=== PATIENT | female | born 1955 | race Caucasian/White ===

== ENCOUNTER 2016-06-04 10:27 | Emergency (ER) | payer SELFPAY | END 2016-06-04 11:32 | disposition left against medical advice (07) | LOC: UCEAST 10:27 | DX: Z53.21 Procedure and treatment not carried out due to patient leaving prior to being seen by health care provider (principal); R07.81 Pleurodynia ==

== ENCOUNTER 2017-10-07 08:12 | Day surgery (SDC) | payer BC ==
--- NOTE | 2017-09-28 07:27 | HP ---
CC: Dr. Gabriela Garcia. * PREOPERATIVE HISTORY AND PHYSICAL: DATE OF ADMISSION: 10/07/17 DATE OF PREOPERATIVE HISTORY AND PHYSICAL EXAM: 09/27/17 This patient is scheduled for same day surgery admission by Dr. Amador on Tuesday10/07/17. ATTENDING SURGEON: Dr. Michelle Amador * (dictated by Kita Garsia NP). CHIEF COMPLAINT: Right breast cancer. HISTORY OF PRESENT ILLNESS: The patient is a 62-year-old female, recently evaluated by Dr. 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 The patient denies any pain or nipple discharge; she does not have a family history of breast or ovarian cancer. Menarche was at age 11, menopause at age 52. First delivery at age 24. The patient took control pills for less than 10 years and is not on any hormone replacement therapy. She has never had radiation to the chest. She did breast feed. Dr. Amador examined the patient and discussed the findings and has recommended mammo-guided needle localization excision of the right breast cancer and sentinel lymph node biopsy as a same day surgery procedure; she discussed the nature of the surgical procedure, the rationale for the procedure, the relevant risks and benefits and today I reviewed the expected postoperative care and recovery. The patient has had a chance to ask questions and stated that she understands the information and is satisfied with the answers given to her questions. She will sign surgical consent on the day of surgery. PAST MEDICAL HISTORY: Significant for hypertension, esophageal erosions, alcoholism, anxiety and depression, and obesity. PAST SURGICAL HISTORY: None. OB HISTORY: 2, para 2. She is postmenopausal and is up-to-date with pelvic exam and Pap smear within the past 3 years. MEDICATIONS: 1. Citalopram 40 mg p.o. daily at bedtime. 2. Levothyroxine 88 mcg p.o. daily in the morning. 3. Gabapentin 300 mg p.o. daily at bedtime and up to 300 mg during the day as needed. 4. Zolpidem 10 mg daily at bedtime. 5. Omeprazole 20 mg p.o. daily in the morning. 6. Metoprolol 50 mg p.o. daily in the morning. She is on the following supplements: 1. Vitamin D3. 2. B1. 3. B12. 4. Folic acid. ALLERGIES: No known drug allergies, but she avoids ibuprofen due to history of esophageal erosions. FAMILY HISTORY: No known anesthesia complications or bleeding tendencies. The patient's mother had a pulmonary embolism. SOCIAL HISTORY: She is and lives with her son. She has never been a smoker. She reports struggles with alcoholism. She denies the use of other substances. REVIEW OF SYSTEMS: Constitutional: No fevers, chills, excessive fatigue. Endocrine: No diabetes. She is on thyroid replacement for hypothyroidism. Hematologic: No easy bruising or bleeding. No history of blood transfusions. Respiratory: No dyspnea on exertion. No chronic cough. Cardiovascular: No anginal chest pain or palpitations. Gastrointestinal: No nausea, vomiting, diarrhea or constipation; she had blood in her stool and underwent both upper endoscopy and colonoscopy and was told that she had esophageal erosions. Genitourinary: No dysuria. Musculoskeletal: No complaints of joint or back pain today. Neurologic: No headaches or blurred vision. No areas of focal weakness or numbness. Psychiatric: Anxiety and depression and she states that she struggles with alcoholism and is in counseling. She reports that she has decreased her alcohol intake significantly. General: The patient denies any previous anesthesia complications or history of deep venous thrombosis or pulmonary embolism. PHYSICAL EXAMINATION GENERAL SURVEY: The patient is a 62-year-old overweight female, well developed , in no acute distress. VITAL SIGNS: Height 63 inches, weight 214 pounds, body mass index 37.9. Blood pressure 138/88, pulse 76 and regular, respiratory rate 16 and temperature 98.6 tympanic. HEENT: Benign. NECK: Supple. No cervical lymphadenopathy. BACK: No CVA tenderness. LUNGS: Breath sounds bilaterally clear and equal. BREASTS: Symmetrical. Area of biopsy, right breast, healed without any signs of infection. Palpation reveals a small area of thickened tissue in the lateral right breast; left breast no discrete masses. Nipples are normal to inspection. No discharge. No palpable axillary lymphadenopathy. No palpable supraclavicular lymphadenopathy. HEART: Regular rate and rhythm. No murmurs or rubs appreciated. ABDOMEN: Active bowel sounds, soft, nondistended, nontender throughout. No obvious masses or organomegaly or evidence of umbilical hernia. EXTREMITIES: Warm without edema or skin ulceration. PELVIC: Deferred. RECTAL: Deferred. NEUROLOGIC: Alert and oriented x3, steady gait. SKIN: Warm, dry, intact. IMPRESSION: Right breast cancer. PLAN: Same day surgery admission to Dr. Amador's service on Tuesday10/07/17 for mammo-guided needle localization excision of right breast cancer and sentinel lymph node biopsy. GAYLE GARSIA, BASKET ASSEMBLER [id number]/CPS #: [id number] [facility]
[~2017-10-07 08:12] MED LIST: Buffered Lidocaine 0.9% SYRIN* 5 ML/SYR SYRINGE INTRADERM ONE; Famotidine IV* 10 MG/ML 2 ML (20 mg) IV ONE
[2017-10-07] MEDS ORDERED: Lidocaine 2.5%/Prilocain 2.5%* 5 GM TUBE ONE (08:24)
[2017-10-07] MEDS ORDERED: ceFAZolin 2 GM PREMIX (*) 2 GM/50 ML BAG IVPB ONE (08:24)
[2017-10-07] MEDS ORDERED: Famotidine IV* 10 MG/ML 2 ML (20 mg) ONE (12:48)
[2017-10-07] MEDS ORDERED: Heparin VIAL(*) 5000 UNITS/ML VIAL (FIVE THOUSAND) ONE (12:48)
[2017-10-07] MEDS ORDERED: fentaNYL* 50 MCG/ML 2 ML VIAL (100 MCG VIAL) ONE (13:14)
[2017-10-07] MEDS ORDERED: Midazolam* 1 MG/ML 5 ML VIAL (5 MG) ONE (13:14)
[2017-10-07] MEDS ORDERED: Bupivacaine 0.5%* 50 ML VIAL ONE (14:13)
[2017-10-07] MEDS ORDERED: ceFAZolin 1 GM in Dextrose (*) 2 GM/100 ML BAG IVPB ONE (14:43)
[2017-10-07] MEDS ORDERED: Lidocaine 1% MPF wEPI 200,000* 30 ML SDV ONE (14:55)
[2017-10-07] MEDS ORDERED: Propofol* 10 MG/ML 20 ML BTL IV PUSH ONE (14:59)
[2017-10-07] MEDS ORDERED: Dexamethasone IV* 4 MG/ML 1 ML (4 MG) ONE (14:59)
[2017-10-07] MEDS ORDERED: Ketorolac INJ* 30 MG/ML 1 ML VIAL ONE (14:59)
[2017-10-07] MEDS ORDERED: DiMENhydriNATE IV* 50 MG/ML VIAL ONE (14:59)
[2017-10-07] MEDS ORDERED: HYDROmorphone INJ* 1 MG/ML CARPUJECT SYRINGE IV PRN (15:46)
[2017-10-07] MEDS ORDERED: DiMENhydriNATE IV* 50 MG/ML VIAL IV PUSH PRN (15:46)
[2017-10-07] MEDS ORDERED: Acetaminophen TAB* 325 MG PO PRN (15:46)
[2017-10-07] MEDS ORDERED: Naloxone* 0.4 MG/ML 1 ML VIAL IV PRN (15:46)
--- NOTE | 2017-10-07 15:49 | RAD ---
Indication: Breast cancer. Ultrasound of the right breast was performed. Using usual aseptic technique and lidocaine as a local anesthetic a 5 cm needle was placed within the right breast. A guidewire was placed. Mammogram performed after localization demonstrates the guidewire to be located adjacent to the mass in the right breast. 3 views of the specimen demonstrates the localized mass to be within the specimen. IMPRESSION: Successful localization of the mass in the right breast.
--- NOTE | 2017-10-07 15:54 | RAD ---
Indication: Right breast cancer. [place] node localization was performed after intradermal injection of the circumareolar region of the right breast. [place] node was localized and marked with indelible marker. IMPRESSION: Localization of the sentinel node after intradermal injection.
--- NOTE | 2017-10-07 16:42 | BRIEFOPN ---
Brief Operative Note - Surgery Procedures: 10/07/17 Op Note Pre-op dx: right breast cancer Post-op dx: same Procedure: needle localization excision of right breast cancer and sentinel lymph node biopsy Surgeon: Perry Asst: none Anesth: General EBL: 50 cc SCDs on during surgery Abx: given pre-op Complications: none Pt. tolerated procedure well and was transferred to in a stable condition. CL[facility]oster
[2017-10-07] MEDS ORDERED: HYDROcodone/ACETAMIN 5-325 MG* 1 TAB PO PRN (16:43)
[2017-10-07 17:31] VITALS: BP 137/93
--- NOTE | 2017-10-08 08:13 | OP ---
[facility]: [facility]; Dr. Gabriela Garcia OPERATIVE REPORT: DATE OF OPERATION: 10/07/17 DATE OF : 53 SURGEON: Michelle Amador MD VARNISH INSPECTOR: None. PRE-OP DIAGNOSIS: Right breast cancer. POST-OP DIAGNOSIS: Right breast cancer. OPERATIVE PROCEDURE: Needle localization, excision of right breast cancer, and sentinel lymph node b iopsy. INDICATIONS: Ms. Goldsmith is a 62-year-old female recently diagnosed with breast cancer, who has opted for breast conserving therapy. DESCRIPTION OF PROCEDURE: On the morning of surgery, she underwent needle localization and sentinel lymph node localization without difficulty. She was then brought to the operating room, placed on th e OR table in the supine position, and given general anesthesia. The right breast and axilla were pr epped and draped in the usual sterile fashion. After infiltrating with local anesthetic, the first s tep was to excise the breast cancer. This was done by making an incision around the wire in a curvil inear elliptical fashion. Subcutaneous tissue was then divided with electrocautery to completely exc ise the mass of tissue from around the wire, which was sent to Radiology with the usual markings. Th e report eventually came back from Radiology that this specimen contained the abnormality. Meanwhile , hemostasis was achieved with electrocautery and suture ligature. Once hemostasis appeared adequate , the cavity was marked with clips and then closure was accomplished. This was done with 3-0 Vicryl in the subcutaneous layer and the skin was closed with 4-0 Prolene in a subcuticular fashion. Attent ion was then turned to the axilla. Here, using the navigator, the approximate location of the sentin el node was identified and a curvilinear incision was made over this area after infiltrating with loc al anesthetic. Subcutaneous tissue was then divided with electrocautery down to the level of the axi llary fat pad. Again, using the navigator, the sentinel node was identified, it is in situ. Counts were around 874. It was excised using sharp and blunt dissection and clips to control small lymphati c and blood vessels that approached the gland. Once it was out, its ex vivo counts were 655 and the axillary bed counts were 0. The wound was irrigated with saline. Additional local was instilled int o the wound and then closure was accomplished with 3-0 Vicryl in the subcutaneous layer and the skin was closed with 4-0 Prolene in a subcuticular fashion. Steri-Strips and a dry sterile dressing were applied to both incisions. All sponge and instrument counts were correct. The patient tolerated the procedure well and was transferred to Recovery in a stable condition. [id number]/[facility] #: [id number]
== END 2017-10-07 18:00 | disposition home or self-care (01) ==
LOC: SDS 08:12
PROVIDERS: ATTEND Surgery
DX: C50.911 Malignant neoplasm of unspecified site of right female breast (principal); I10 Essential (primary) hypertension; K22.10 Ulcer of esophagus without bleeding; F41.9 Anxiety disorder, unspecified; F32.9 Major depressive disorder, single episode, unspecified; F10.129 Alcohol abuse with intoxication, unspecified
CPT/HCPCS: 77063; 78195; 88307; 88342; A9270-GY; A9541; J0690; J1100; J1240; J1644; J1885; J2001; J2250; J2704; J3010

== ENCOUNTER 2018-09-15 19:28 | Emergency (ER) | payer BC ==
--- NOTE | 2018-09-15 20:04 | ED ---
Head Injury - HPI Summary HPI Summary: 63 yo female presents to [facility] accompanied by son, Mihai. Pt tells me that she was drinking a bottle of white wine this evening, last drink about 3 hours ago. She went down her steps at home and slipped on 3 wooden steps and hit the back of her head. No LOC. Pt was able to get to her feet and noticed some bleeding from the back of her head. Her son brought her to the ED. She thinks she is UTD on her tetanus. Denies headache, dizziness, vision changes, weakness, neck pain , SOB, or chest pain. She denies alcohol abuse, states that she was just relaxing on a tuesday after work. - History Of Current Complaint Chief Complaint: EDHeadInjury Stated Complaint: FALL/HEAD INJURY PER PT Time Seen by Provider: 09/15/18 20:03 Hx Obtained From: Patient Severity Currently: Mild Severity Initially: Moderate Pain Intensity: 2 Pain Scale Used: 0-10 Numeric - Allergies/Home Medications Allergies/Adverse Reactions: Allergies Allergy/AdvReac Type Severity Reaction Status Date / Time ibuprofen Allergy Intermediate GI Upset Verified 09/15/18 19:46 PMH/Surg Hx/FS Hx/Imm Hx Endocrine/Hematology History: Reports: Hx Thyroid Disease - HYPO Denies: Hx Bone Marrow Disease, Hx Sickle Cell Disease, Hx Anemia Cardiovascular History: Reports: Hx Hypertension - CONTROLLED WITH MEDICATION HIGHER IN AM Sensory History: Reports: Hx Contacts or Glasses - GLASSES Denies: Hx Cataracts, Hx Glaucoma, Hx Hearing Aid Opthamlomology History: Reports: Hx Contacts or Glasses - GLASSES Denies: Hx Cataracts, Hx Glaucoma Psychiatric History: Reports: Hx Anxiety, Hx Depression - Cancer History Cancer Type, Location and Year: breast Hx Chemotherapy: No Hx Radiation Therapy: Yes - Surgical History Surgery Procedure, Year, and Place: drain right breast Hx Anesthesia Reactions: No Infectious Disease History: No Infectious Disease History: Denies: Traveled Outside the [place] in Last 30 Days - Social History Alcohol Use: Daily Alcohol Amount: BOTTLE OF WINE Substance Use Type: Reports: None Smoking Status (MU): Never Smoked Tobacco Have You Smoked in the Last Year: No Review of Systems Constitutional: Negative Eyes: Negative Cardiovascular: Negative Respiratory: Negative Gastrointestinal: Negative Genitourinary: Negative Skin: Other - Laceration back of head Neurological: Negative Psychological: Normal All Other Systems Reviewed And Are Negative: Yes Physical Exam - Summary Physical Exam Summary: GENERAL: NAD. WDWN. SKIN: Occipital scalp with 2.0cm linear vertical laceration with 5mm of width. Scant active bleeding. HEENT: Head: AT/NC. No raccoon eyes or battles sign. Eyes: PERRLA. EOM intact. Ears: Hearing grossly normal. No hemotympanum NECK: Supple. Nontender. FROM CHEST: CTAB. No r/r/w. No accessory muscle use. Breathing comfortably and in no distress. CV: RRR. Without m/r/g. Pulses intact. Brisk cap refill. MSK: FROM in B/L UEs and LEs with symmetric strength. NEURO: A&Ox3. 3 word recall, remote, recent memory, ability to follow 2-step directions, and attention intact. CN: II: Peripheral hancock intact. Vision normal. III, IV, : EOMI. No nystagmus. PERRLA. V: Sensations intact and symmetric. Opens mouth and clenches teeth. VII: No facial asymmetry. Forehead wrinkles. Grins, shuts eyes, frowns, puffs cheeks. VIII: Hearing intact to finger rub. IX, X: Swallows and coughs. Uvula midline. XI: Shrugs shoulders. Turns head against resistance. XII: No tongue deviation [id number] are intact. Gait with normal base. Romberg: maintains balance, no pronator drift. Normal speech. No facial drooping. PSYCH: Age appropriate behavior. Triage Information Reviewed: Yes Vital Signs On Initial Exam: Initial Vitals Temp Pulse Resp BP Pulse Ox 98.4 F 90 16 125/84 96 09/15/18 19:42 09/15/18 19:42 09/15/18 19:42 09/15/18 19:42 09/15/18 19:42 Vital Signs Reviewed: Yes Procedures - Laceration/Wound Repair 1 Location: head Description: Linear Anesthesia: 2.0% Laceration/Wound Explored: clean Closure: Mick #__ - 6 Diagnostics - Vital Signs Vital Signs Temp Pulse Resp BP Pulse Ox 09/15/18 19:42 98.4 F 90 16 125/84 96 - Laboratory Lab Statement: Any lab studies that have been ordered have been reviewed, and results considered in the medical decision making process. Head Injury Course/Dx Course Of Treatment: The procedure was explained to the pt and all questions were answered. A time out was performed, witnessed, and signed. The area was irrigated with 250mL sterile saline. 2mL of 2% lidocaine without epi was administered and good anesthetization was achieved. SIX mick were placed and wound was approximated. Pt tolerated procedure well. She is AAOx3 and neuro exam is WNL. She has her son Mihai with her here that can drive her home. Advised to return to ED if she develops a headache, dizizness, vision changes, nausea, or vomiting. - Diagnoses Provider Diagnoses: Head injury, Scalp laceration Discharge - Sign-Out/Discharge Documenting (check all that apply): Patient Departure Patient Received Moderate/Deep Sedation with Procedure: No - Discharge Plan Condition: Stable Disposition: HOME Patient Education Materials: Head Injury (ED), [facility] (ED) Referrals: Gabriela Garcia MD [Primary Care Provider] - 1 Week Additional Instructions: If you develop a fever, shortness of breath, chest pain, headache, dizziness, vision changes, vomiting, new or worsening symptoms - please call your PCP or go to the ED. 1) Please see your primary doctor or go to [facility] to have your mick removed in 7-10 days - Billing Disposition and Condition Condition: STABLE Disposition: Home
[2018-09-15] MEDS ORDERED: Lidocaine 2% PF * 5 ML VIAL INJ ONE (20:07)
[2018-09-15] MEDS ORDERED: Lidocaine 2% MPF* 2 ML VIAL ONE (20:21)
[2018-09-15] MEDS ORDERED: Lidocaine 1%* 5 ML VIAL ONE (20:21)
[2018-09-15 20:45] VITALS: BP 126/89
== END 2018-09-15 20:44 | disposition home or self-care (01) ==
LOC: ED 19:28
DX: S01.01XA Laceration without foreign body of scalp, initial encounter (principal); W10.9XXA Fall (on) (from) unspecified stairs and steps, initial encounter; Y92.019 Unspecified place in single-family (private) house as the place of occurrence of the external cause; E07.9 Disorder of thyroid, unspecified
CPT/HCPCS: 12001; 96374; 99281

== ENCOUNTER 2019-05-10 08:08 | Observation (INO) | payer MEDICARE, BC ==
--- OUTSIDE RECORDS SUMMARY | 2019-05-10 08:26 | XMS REPORT | Continuity of Care Document ---
:1955 External Reference #:[id number] Author Name DANIEL Nieves Address [address] [place] [id number] Problems Active Problems Provider Date Osteopenia Onset: 02/20/2018 Malignant neoplasm of female breast Onset: 09/12/2017 Essential hypertension Onset: 06/03/2017 Tubular adenoma of colon Onset: 07/10/2015 Erosive esophagitis Onset: 06/12/2015 Systolic murmur Onset: 06/12/2015 Inactive Problems Tension-type headache Onset: 01/04/2019 Inactive: 01/04/2019 Social History Type Date Description Comments Sex Unknown Allergies, Adverse Reactions, Alerts Description No Known Drug Allergies Medications Active Medications SIG Qnty Indications Ordering Provider Date Levothyroxine Sodium oral; take 1 90tabs DANIEL Nieves 04/12/2019 tablet every day 100mcg Tablets Lisinopril 1 tab by mouth 30tabs DANIEL Nieves 04/12/2019 5mg Tablets every day Omeprazole Oral 90caps Unknown 01/03/[address] Levothyroxine Sodium Oral; Take 1 90tabs Unknown 11/10/2018 Tablet By Mouth 88mcg Tablets Every Day Metoprolol Succinate oral; take 1 90tabs Ashwin Chu MD 06/06/2018 ER tablet by mouth 50mg Tablets ER 24HR every day Arimidex 1 daily Oral 30tabs Unknown 05/24/2018 1mg Tablets Gabapentin outside Oral Unknown 06/12/2015 100mg Capsules Citalopram 1 daily Oral 30tabs Unknown 04/06/2015 Hydrobromide 40mg Tablets Vitamin D3 Complete Unknown Vitamin B12 Unknown Folic Acid Unknown Immunizations CPT Code Status Date Vaccine Lot # 23936 Given 09/28/2017 Pneumovax - for >=2years - PPSV23 70074 Given 05/31/2017 Influenza Virus Vaccine, Quadrivalent, Split, Im Use 0.25ML 82685 Given 05/31/2017 Influenza Virus Vaccine, Quadrivalent, Split, Im Use 0.25ML 76881 Given 05/31/2017 Influenza Virus Vaccine, Quadrivalent, Split, Im Use 0.25ML 29948 Given 05/31/2017 Flu < 65 years 54321 Given 05/31/2017 Influenza Virus Vaccine, Quadrivalent, Split, Preservative Free 58283 Given 05/31/2017 Flumist 00863 Given 05/31/2017 Flu High Dose 53184 Given 05/31/2017 Influenza Virus Vaccine, Split, Preserv Free, Intradermal Use 03069 Given 12/03/2005 Tdap - Boostrix/Adacel 92896 Given 12/03/2005 Tdap - Boostrix/Adacel 01472 Given 12/03/2005 Tdap - Boostrix/Adacel Vital Signs Date Vital Result Comment 04/12/2019 8:56am BP Systolic 132 mmHg BP Diastolic 100 mmHg Heart Rate 95 /min Body Temperature 98.3 F O2 % BldC Oximetry 98 % 01/04/2019 11:44am BP Systolic 142 mmHg Weight 206.00 lb Heart Rate 111 /min Body Temperature 98.7 F O2 % BldC Oximetry 96 % Results Test Acquired Date Facility Test Result H/L Range Note TSH 01/04/2019 N2N/CCD Import TSH 1.96 0.34-5.60 mcIU/mL mcIU/mL Sodium 01/04/2019 N2N/CCD Import Sodium 139 mmol/L 135-145 mmol/L Protein, Total 01/04/2019 N2N/CCD Import Protein, Total 7.3 g/dL 6.4- 8.9 g/dL Potassium 01/04/2019 N2N/CCD Import Potassium 4.5 mmol/L 3.5-5.0 mmol/L Glucose 01/04/2019 N2N/CCD Import Glucose 90 mg/dL 70-100 mg/dL Globulin 01/04/2019 N2N/CCD Import Globulin 3.2 g/dL 2-4 g/dL GFR Non Afr 01/04/2019 N2N/CCD Import GFR Non Afr 77.8 _ >60 Amer Amer GFR Afr Amer 01/04/2019 N2N/CCD Import GFR Afr Amer 94.1 _ >60 Creatinine 01/04/2019 N2N/CCD Import Creatinine 0.75 mg/dL 0.51-0.95 mg/dL Co2 01/04/2019 N2N/CCD Import Co2 21 mmol/L Low 22-32 mmol/L Chloride 01/04/2019 N2N/CCD Import Chloride 105 mmol/L 101-111 mmol/L Calcium 01/04/2019 N2N/CCD Import Calcium 9.9 mg/dL 8.6-10.3 mg/dL BUN/Creat Ratio 01/04/2019 N2N/CCD Import BUN/Creat Ratio 17.3 _ 8-20 BUN 01/04/2019 N2N/CCD Import BUN 13 mg/dL 6-24 mg/dL Bilirubin Total 01/04/2019 N2N/CCD Import Bilirubin Total 0.80 mg/dL 0.2 -1.0 mg/dL Ast 01/04/2019 N2N/CCD Import Ast 19 U/L 13-39 U/L Anion Gap 01/04/2019 N2N/CCD Import Anion Gap 13 mmol/L High 2-11 mmol/L Alt 01/04/2019 N2N/CCD Import Alt 14 U/L 7-52 U/L Alk Phos 01/04/2019 N2N/CCD Import Alk Phos 104 U/L 34-104 U/L Albumin 01/04/2019 N2N/CCD Import Albumin 4.1 g/dL 3.2-5.2 g/dL A/G Ratio 01/04/2019 N2N/CCD Import A/G Ratio 1.3 _ 1-3 Procedures Description No Information Available Medical Devices Description No Information Available Encounters Type Date Location Provider Dx Diagnosis Office Visit 04/12/2019 9:00a [facility] Main DANIEL Nieves I10 Essential ( primary) hypertension E03.9 Hypothyroidism, unspecified R53.83 Other fatigue Assessments Date Code Description Provider 04/12/2019 I10 Essential (primary) hypertension DANIEL Nieves 04/12/2019 E03.9 Hypothyroidism, unspecified DANIEL Nieves 04/12/2019 R53.83 Other fatigue DANIEL Nieves Plan of Treatment Future Appointment(s):05/02/2019 9:00 am - DANIEL Nieves at [facility] Main2018 - RENATA NievesPI10 Essential (primary) [id number] Hypothyroidism, [id number] Other fatigueAllNew Medication:Levothyroxine Sodium 100 mcg - oral; take 1 tablet every dayLisinopril 5 mg - 1 tab by mouth every day Functional Status Description No Information Available Mental Status Description No Information Available Referrals Description No Information Available
[2019-05-10] MEDS ORDERED: Aspirin 81 mg CHEW TAB* 81 MG TAB.CHEW PO ONE (08:39)
--- NOTE | 2019-05-10 08:42 | ED ---
HPI Chest Pain - HPI Summary HPI Summary: Pt. is a 64 y.o female who presents to the ED for chest pain that started 0730 today. Pt. noted pain is a pressure to the center of her chest that is increased with inspiration. Past medical hx of breast cancer, obesity, HTN, HLD. Denies associated sxs of SOB, light headedness, dizziness, diaphoresis, N/ V. Pt. also notes hx of esophagitis but states sxs feel different. Pt. also notes she has had some pain to her left lower ribs over the last few days. Pt. notes she has had an echo years ago for possible heart murmur but otherwise has never had a cardiac workup. Sxs are moderate in severity. - History of Current Complaint Chief Complaint: EDChestPainROMI Time Seen by Provider: 05/10/19 08:29 Hx Obtained From: Patient Pain Intensity: 4 - Allergy/Home Medications Allergies/Adverse Reactions: Allergies Allergy/AdvReac Type Severity Reaction Status Date / Time ibuprofen Allergy Intermediate GI Upset Verified 05/10/19 08:17 Home Medications: Home Medications Anastrozole (NF) [Arimidex (NF)] 1 mg PO DAILY 05/10/19 [History Confirmed 05/10] Cholecalciferol CAP/TAB(NF) [Vitamin D3 CAP/TAB (NF)] 5,000 unit PO DAILY [History Confirmed 05/10/19] Gabapentin CAP(*) [Neurontin 100 mg CAP(*)] 100 mg PO DAILY 05/10/19 [History Confirmed 05/10/19] Levothyroxine TAB* [Synthroid 100 MCG TAB*] 100 mcg PO DAILY 05/10/19 [History Confirmed 05/10/19] Lisinopril TAB* [Prinivil TAB 5 MG*] 5 mg PO DAILY 05/10/19 [History Confirmed 05/10/19] PMH/Surg Hx/FS Hx/Imm Hx Previously Healthy: Yes Endocrine/Hematology History: Reports: Hx Thyroid Disease - HYPO Denies: Hx Bone Marrow Disease, Hx Sickle Cell Disease, Hx Anemia Cardiovascular History: Reports: Hx Hypertension - CONTROLLED WITH MEDICATION HIGHER IN AM Sensory History: Reports: Hx Contacts or Glasses - GLASSES Denies: Hx Cataracts, Hx Glaucoma, Hx Hearing Aid Opthamlomology History: Reports: Hx Contacts or Glasses - GLASSES Denies: Hx Cataracts, Hx Glaucoma Psychiatric History: Reports: Hx Anxiety, Hx Depression - Cancer History Cancer Type, Location and Year: breast Hx Chemotherapy: No - 09/2017 Hx Radiation Therapy: Yes - Surgical History Surgery Procedure, Year, and Place: drain right breast Hx Anesthesia Reactions: No - Immunization History Date of Tetanus Vaccine: unknown Infectious Disease History: No Infectious Disease History: Denies: Traveled Outside the [place] in Last 30 Days - Family History Known Family History: Positive: Non-Contributory - Social History Occupation: Retired Lives: With Family Alcohol Use: Daily Alcohol Amount: BOTTLE OF WINE Substance Use Type: Reports: None Smoking Status (MU): Never Smoked Tobacco Have You Smoked in the Last Year: No Review of Systems Constitutional: Negative Negative: Fever Eyes: Negative ENT: Negative Positive: Chest Pain Respiratory: Negative Negative: Shortness Of Breath, Cough Gastrointestinal: Negative Negative: Abdominal Pain, Vomiting, Diarrhea Genitourinary: Negative Negative: dysuria Neurological: Negative All Other Systems Reviewed And Are Negative: Yes Physical Exam Triage Information Reviewed: Yes Vital Signs On Initial Exam: Initial Vitals Temp Pulse Resp BP Pulse Ox 97.7 F 87 17 150/91 98 05/10/19 08:14 05/10/19 08:14 05/10/19 08:14 05/10/19 08:14 05/10/19 08:14 Vital Signs Reviewed: Yes Appearance: Positive: Well-Appearing - Pt. sitting up in bed in NAD. Pleasant. Obese. Son present. Skin: Positive: Warm, Dry Head/Face: Positive: Normal Head/Face Inspection Eyes: Positive: Normal, EOMI, CONY Neck: Positive: Supple Respiratory/Lung Sounds: Positive: Clear to Auscultation, Breath Sounds Present. Negative: Rales, Wheezes Cardiovascular: Positive: Normal, RRR Abdomen Description: Positive: Nontender, Soft Musculoskeletal: Positive: Normal, Strength/ROM Intact. Negative: Edema Left, Edema Right Neurological: Positive: Normal, CN Intact II-III Psychiatric: Positive: Affect/Mood Appropriate Procedures - Sedation Patient Received Moderate/Deep Sedation with Procedure: No Diagnostics - Vital Signs Vital Signs Temp Pulse Resp BP Pulse Ox 05/10/19 08:14 97.7 F 87 17 150/91 98 - Laboratory Result Diagrams: 05/11/19 06:02 05/11/19 06:02 Lab Statement: Any lab studies that have been ordered have been reviewed, and results considered in the medical decision making process. Chest Pain Course/Dx - Course Course Of Treatment: Pt. presenting with chest pressure and pain with inspiration. She is afebrile with stable vital signs. Patient given a dose of recently for chewable aspirin. She notes her pain is minimal at this time and rest. HEART score is 4, moderate risk. ECG done at 0852 shows a sinus rhythm of 77 bpm, normal axis, no STEMI. Labs are relatively unremarkable other than moderately elevated d-dimer. CTA obtained to rule out PE given pt.'s hx and pleuritic CP. CTA per radiology: IMPRESSION: No definite evidence of pulmonary embolus is noted. There is some scarring and. atelectasis in the right lower lobe and right middle lobe. Large hiatal hernia is noted. Sclerotic lesion at approximately T11 and compression fractures of L1 and T12 are new. since previous exam of December 06, 2017. I cannot totally exclude metastatic disease in these. areas. Given pt.'s risk factors hospitalist was contacted to admit for further testing> Case discussed with Dr. Lopez who agrees to admission. - Chest Pain Differential Diagnosis/HQI/PQRI: Acute PA, ACS, Angina, Chest Wall, GI Disease, Lower Respiratory Infection, Pulmonary Edema, Pulmonary Embolism - Diagnoses Provider Diagnoses: Chest pain Discharge ED - Sign-Out/Discharge Documenting (check all that apply): Patient Departure - Discharge Plan Condition: Fair Disposition: ADMITTED TO [facility] - Billing Disposition and Condition Condition: FAIR Disposition: Admitted to [facility] - Attestation Statements Provider Attestation: pt seen by midlevel provider independently, based on their assessment, it was not necessary to present the case to me but I was available for consultation. I did not form a physician-patient relationship with the patient. The chart however, has been reviewed. am signing this note strictly in an administrative capacity.
[2019-05-10 08:45] LABS: ABS Basophils 0.1 10^3/ul (0-0.2); ABS Eosinophils 0.3 10^3/ul (0-0.6); ABS Lymphocytes 1.1 10^3/ul (1.0-4.8); ABS Monocytes 0.9 10^3/ul (0-0.8); ABS Neutrophils 3.8 10^3/ul (1.5-7.7); Eosinophil % 5.4 %; Hematocrit 45 % (35-47); Hemoglobin 15.7 g/dL (12.0-16.0); Lymphocyte % 17.9 %; Mean Corpuscular HGB Conc 35 g/dL (31-36); Mean Corpuscular Hemoglobin 35 pg (27-31); Mean Corpuscular Volume 100 fL (80-97); Mean Platelet Volume 9.1 fL (7.4-10.4); Nucleated Red Blood Cells % 0.1; Platelet Count 227 10^3/uL (150-450); Red Blood Count 4.52 10^6 /uL (3.70-4.87); Red Cell Distribution Width 13 % (10-15); White Blood Count 6.2 10^3/uL (3.5-10.8)
[2019-05-10 09:03] LABS: ALT 17 U/L (7-52); AST 20 U/L (13-39); Albumin/Globulin Ratio 1.3 (1-3); Alkaline Phosphatase 127 U/L (34-104); Anion Gap 8 mmol/L (2-11); BUN/Creatinine Ratio 27.6 (8-20); Blood Urea Nitrogen 24 mg/dL (6-24); CO2 Carbon Dioxide 26 mmol/L (22-32); Calcium 9.8 mg/dL (8.6-10.3); Chloride 101 mmol/L (101-111); EGFR African American 79.1 (>60); EGFR Non-African American 65.3 (>60); Globulin 3.1 g/dL (2-4); Glucose 110 mg/dL (70-100); Magnesium 1.8 mg/dL (1.9-2.7); Potassium 4.2 mmol/L (3.5-5.0); Sodium 135 mmol/L (135-145); Total Protein 7.1 g/dL (6.4-8.9)
[2019-05-10 09:30] LABS: Activated Partial Thrombo Time 28.6 seconds (26.0-38.0); INR 0.98 (0.82-1.09)
[2019-05-10] MEDS ORDERED: Iohexol 350* (CONTRAST) 500 ML MDV IV ONE (09:46)
[2019-05-10] MEDS ORDERED: Enoxaparin(*) 40 MG/0.4 ML SYR SUBCUT SCH (13:00)
[2019-05-10] MEDS ORDERED: Thiamine INJ* 100 MG/ML 2 ML VIAL IM ONE (13:02)
[2019-05-10 13:34] LABS: Urine Appearance Clear; Urine Bilirubin Negative (Negative); Urine Blood Negative (Negative); Urine Color Yellow; Urine Glucose Negative (Negative); Urine Ketones Trace (Negative); Urine Nitrite Negative (Negative); Urine Protein Negative (Negative); Urine Specific Gravity 1.024 (1.010-1.030); Urine Urobilinogen Negative (Negative)
[2019-05-10 13:38] LABS: Alcohol < 10 mg/dL (<10)
[2019-05-10] MEDS ORDERED: LORazepam TAB(*) 1 MG PO SCH (14:00)
[2019-05-10 14:04] LABS: Hepatitis B Surface Antigen Nonreactive (Nonreactive)
[2019-05-10] MEDS ORDERED: Iohexol 300* (CONTRAST) 10 ML SDV IV ONE (14:09)
[2019-05-10 14:21] LABS: Hepatitis C Antibody Negative (Negative)
--- NOTE | 2019-05-10 15:39 | HP ---
CC: Dr. María Elena Catalan; Dr. Yuliet Choudhary * HISTORY AND PHYSICAL: DATE OF ADMISSION: 05/10/19 PRIMARY CARE PROVIDER: Dr. María Elena Catalan. OTHER PROVIDER: Dr. Yuliet Choudhary. ATTENDING PHYSICIAN: Dr. Tawnya Clemons * (dictated by LIZBETH Gamble). CHIEF COMPLAINT: Chest pain. HISTORY OF PRESENT ILLNESS: Ms. Goldsmith is a 64-year-old female with a past medical history of hypertension; hypothyroidism; right breast cancer, status post lumpectomy and radiation treatment, currently on anastrozole; and alcoholism; who presented to the ER today with complaints of chest pain. She states she woke up this morning, stood up and immediately experienced a dull ache in the chest. There was no radiation of the pain. She notes that she occasionally has chest pain that goes away after approximately 1 minute, but this lasted much longer. She states that 30 minutes passed and she then woke her son to take her to the ER. The pain lasted a total of 90 to 120 minutes in total. She notes that the pain was constant, but was worse with deep inspiration and did not change with positioning or activity/rest. The patient denies associated nausea, diaphoresis, shortness of breath. She denies history of recent cough or upper respiratory illness, fevers, chills. She denies lower extremity edema, PND, but does admit to some dyspnea on exertion. She also has low back pain for some time status post fall and has been working with Physical Therapy for this. She recently started lisinopril 3 weeks ago for hypertension with good results. It is important to mention that the patient is a heavy drinker, drinking approximately 1 bottle of wine per day for at least 3 years. She is trying to decrease her alcohol consumption and works with [employer] at this time. In the ER, the patient received a full workup. A CBC was unremarkable. D- dimer was elevated to 532 prompting a CTA of the chest, which was negative for pulmonary embolism. The patient was noted to have hypomagnesemia as well as a mildly elevated alk phos. Chest x-ray revealed no acute disease. Two EKGs were performed. The first one shows normal sinus rhythm with a rate of 92. Second one shows T-wave inversion in lead II, normal sinus rhythm with a rate of [address] elevation or depression. In the ER, the patient was given aspirin 324 mg. The hospitalist team was asked to evaluate the patient for admission. PAST MEDICAL HISTORY: 1. Hypertension. 2. Hypothyroidism. 3. Right breast cancer, status post lumpectomy, radiation treatment finished in December 2017, now on anastrozole. 4. Depression/anxiety. 5. Insomnia. PAST SURGICAL HISTORY: Right breast lumpectomy x2. HOME MEDICATIONS: 1. Anastrozole 1 mg p.o. daily. 2. Cholecalciferol 5000 units p.o. daily. 3. Citalopram 40 mg p.o. daily. 4. Cyanocobalamin 1000 mcg p.o. daily. 5. Folic acid 1 mg p.o. daily. 6. Gabapentin 100 mg p.o. daily. 7. Levothyroxine 188 mcg p.o. daily. 8. Lisinopril 5 mg p.o. daily. 9. Metoprolol tartrate 50 mg p.o. daily. 10. Omeprazole 20 mg p.o. daily. 11. Zolpidem 10 mg p.o. at bedtime. DRUG ALLERGIES: IBUPROFEN, GI upset. FAMILY HISTORY: Maternal grandmother had an NM. Mother from complications of idiopathic pulmonary fibrosis, also may have had a CVA. Father had a bile duct tumor, which led to . No family history of diabetes mellitus. SOCIAL HISTORY: The patient denies current or former use of tobacco. She drinks alcohol daily, 1 bottle of wine per day for at least 3 years. 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 She is . Her of a heart attack in 2002 at the age of 52. She has 1 son whom she lives with and 1 daughter. She also has 1 grandson. In the event that she is unable to make her own medical decisions, she has appointed her daughter, Bhumi Goldsmith, to be her surrogate decision maker. REVIEW OF SYSTEMS: A 14-point review of systems has been performed and all the pertinent positives and negatives are in the HPI. All other systems are negative. PHYSICAL EXAMINATION GENERAL: Ms. Goldsmith is a well-developed, well-nourished, obese, middle-aged white woman, who is sitting up in bed. She is weepy and tearful and appears anxious. She is in no acute distress. VITAL SIGNS: Temperature 97.7 oral, heart rate 75, respiratory rate 20, oxygen saturation 96% on room air, blood pressure 122/91. HEENT: PERRL. EOMI. Visual hancock grossly intact. Hearing grossly intact, although very mildly hard of hearing. Oral mucous membranes are moist. There are no lesions. The pharynx is clear. The tongue is at midline. The palate elevates symmetrically. PULMONARY: Symmetrical chest expansion without use of accessory muscles. Clear to auscultation bilaterally without rhonchi, wheeze, rales. No digital clubbing or cyanosis. CARDIOVASCULAR: Regular rate and rhythm with S1, S2 present without murmurs, rubs, clicks, or gallops. There is no JVD or peripheral edema. ABDOMEN: Obese. No visual abnormalities. Soft, nontender to palpation. No hepatomegaly noted. Madison sign negative. MUSCULOSKELETAL: Full range of motion without pain or deformities. NEURO: The patient is awake. She is alert and oriented x3. Cranial nerves II through XII are grossly intact. Muscle strength 5/5 bilaterally in the upper and lower extremities, equal chemical applicator strength. DIAGNOSTIC STUDIES/LAB DATA: CBC unremarkable. D-dimer 532. Magnesium 1.8. Alk phos 127. Troponin 0.00 and 0.00. 1. EKG: Normal sinus rhythm, rate 92. No ST elevation or depression. 2. EKG with T-wave inversion in lead II, normal sinus rhythm, rate of 77. No ST depression or elevation. 3. Chest x-ray, impression: No evidence for acute intrathoracic disease. 4. CTA of the chest: No definite evidence of pulmonary embolus is noted. There is some scarring and atelectasis in the right lower lobe and right middle lobe. Large hiatal hernia is noted. Sclerotic lesion at approximately T11 and compression fractures of L1 and T12 are new since previous exam of 12/06/17, cannot totally exclude metastatic disease in these areas. ASSESSMENT AND PLAN: Ms. Goldsmith is a 64-year-old female with a past medical history of hypertension; hypothyroidism; right breast cancer, status post lumpectomy, radiation treatment, on anastrozole; and alcoholism, who presented to the ER today with complaints of chest pain. She will be admitted observation for: 1. Chest pain. The patient presents with chest pain upon standing when waking this morning. Pain lasted an hour and a half to two hours and resolved spontaneously. She notes association with deep breathing and no change with position or activity. A CTA of the chest was performed and revealed no pulmonary embolism, although there were other noted abnormalities. A troponin is negative x2. EKG shows no ST depression or elevation. Lipid panel and hemoglobin A1c have been ordered for the morning. The patient will be admitted to the tele floor. An echo and non-exercise stress test have been ordered. At this time, she will continue 81 mg aspirin daily. 2. Alcoholism. The patient admits to approximately 1 bottle of wine per day for the last approximately 3 years. She will be placed on WAM protocol. The patient states she goes to AA regularly. Discussed alcohol rehabilitation program availability and the patient declined at this time. 3. Elevated alk phos. The patient presents with a mildly elevated alk phos. Differentials include liver disease, bone disease including cancer as the patient has a history of right breast cancer. At this time, we will order a hepatitis panel and a liver ultrasound. The patient does have a history of heavy alcohol use. Once results have been obtained, we will consider further management. It is important to note that CTA of the chest shows a sclerotic lesion and compression fractures, cannot exclude metastatic disease in these areas. Dr. Cheng has been consulted and recommends CT of the abdomen and pelvis with contrast. Oncology will follow in the morning. 4. Hypomagnesemia. 2 g IV magnesium ordered now. 5. Hypertension. Continue lisinopril and metoprolol, which the patient takes at bedtime. 6. Hypothyroidism. Add on TSH. Continue levothyroxine. 7. History of breast cancer. Continue anastrozole. 8. Depression/anxiety. Continue citalopram, gabapentin. 9. Insomnia. Continue zolpidem 10 mg at bedtime. 10. DVT prophylaxis: According to DVT Risk Assessment, the patient scores 3, placing her at high risk. She will be started on Lovenox. 11. Code status: Full code. TIME SPENT: Approximately 70 minutes was spent on this admission, greater than half that time was spent [id number] with the patient obtaining history, performing physical, and reviewing the plan of care. The case has been reviewed with my attending, Dr. Clemons, who is in agreement with the plan of care. DOUG TOLENTINO, LIZBETH [id number]/[facility] #: [id number] FLAVIA
--- NOTE | 2019-05-10 16:21 | ECHO ---
*[facility]* [place] [address] Fax #: [phone] Transthoracic Echocardiogram Patient: Omar Goldsmith : 1955 Study Date: 05/10/2019 Age: 64 Gender: F HR: 84 bpm Height: 62 in /157.5 cm BSA: 1.81 m^2 Weight: 174.6 lb /79.4 kg BMI: 32 kg/m^2 *Document Coordinator: * Audrey Craft RD *Referring Physician: * Lila Guy *Reading Physician: * João Dueñas MD Indications: Chest Pain, unspecified. Abnormal EKG. SOB. History: Large hiatal hernia. The patient has a breast malignancy. Risk factors: Hypertension. Dyslipidemia. Conclusions Summary: - Left ventricle: Systolic function is normal. The estimated ejection fraction is 60-65%. Wall motion is normal; there are no regional wall motion abnormalities. - Mitral valve: There is trace regurgitation. - Aortic valve: There is no significant regurgitation. - Tricuspid valve: There is trace regurgitation. - Ascending aorta: The ascending aorta is mildly dilated. - No previous echocardiogram available. Study data: Transthoracic echocardiogram. Procedure: Transthoracic echocardiography was performed. Image quality was fair. The study was technically limited due to poor acoustic window availability. Complete 2D, spectral Doppler, and color flow Doppler. Location: Bedside. Patient status: Inpatient. Patient room number: 444-2. Rhythm: Normal sinus rhythm. Findings Left ventricle: The cavity size is below normal. Wall thickness is at the upper limits of normal. Systolic function is normal. The estimated ejection fraction is 60-65%. Wall motion is normal; there are no regional wall motion abnormalities. Doppler parameters are consistent with abnormal left ventricular relaxation (grade 1 diastolic dysfunction). Right ventricle: The cavity size is mildly dilated. Systolic function is normal. Left atrium: The atrium is normal in size. Right atrium: The atrium is normal in size. Mitral valve: The leaflets are mildly thickened. There is no evidence of stenosis. There is trace regurgitation. Aortic valve: The valve is trileaflet. The leaflets are normal thickness. There is no evidence of stenosis. There is no significant regurgitation. Tricuspid valve: The leaflets are normal thickness. There is no evidence of stenosis. There is trace regurgitation. Pulmonic valve: The leaflets are normal thickness. There is no evidence of stenosis. There is trace regurgitation. Aorta: Aortic root: The aortic root is appears normal. Ascending aorta: The ascending aorta is mildly dilated. Aortic arch: The aortic arch is poorly visualized and appears normal. Pericardium: There is no significant pericardial effusion. Pulmonary arteries: The main pulmonary artery is normal-sized. Systolic pressure can not be accurately estimated. Systemic veins: Inferior vena cava: The vessel is normal in size. There is (>= 50%) respiratory change in the IVC dimension. Measurements Left ventricle Value Ref Right atrium continued Value Ref CELESTINO, LAX (L) 3.2 cm 3.8 - 5.2 ML dim, ES, A4C 4.1 cm 2.6 - 4.4 ESD, LAX 2.5 cm 2.2 - 3.5 Estimated RAP 3 mm Hg --------- FS, LAX (L) 20 % 27 - 45 PW, ED, LAX (H) 1.0 cm 0.6 - 0.9 Aortic valve Value Ref FS (L) 20 % 27 - 45 Tati diam, ED 2.2 cm --------- PW, ED (H) 1.0 cm 0.6 - 0.9 Peak v, S 1.01 m/sec --------- E', lat tati, TDI (L) 5.8 cm/sec >=10.0 VTI, S 16.0 cm -- ------- E/e', lat tati, 11 Mean grad, S 2.0 mm Hg ----- ---- TDI Peak grad, S 4.0 mm Hg --------- E', med tati, TDI (L) 5.8 cm/sec >=7.0 LVOT/AV, VTI ratio 0.94 -- ------- E/e', med tati, 11 SELENA, VTI 2.94 cm^2 ----- ---- TDI SELENA, Vmax 2.41 cm^2 --------- E', avg, TDI 5.8 cm/sec E/e', avg, TDI 11 <=14 Mitral valve Value Re f Peak E 0.62 m/sec --------- LVOT Value Ref Peak A 0.78 m/sec --------- Diam, S 2.00 cm Decel time 218 ms --------- Area 3.1 cm^2 Peak E/A ratio 0.8 --------- Peak jackie, S 0.78 m/sec VTI, S 15.0 cm Pulmonic valve Value Ref Mean grad, S 1 mm Hg Peak v, S 0.86 m/sec --------- SV 48 ml Peak grad, S 3.0 mm Hg --------- SV/bsa 27 ml/m^2 Aortic root Value Ref Ventricular septum Value Ref Root diam 3.1 cm <4.0 IVS, ED 0.9 cm 0.6 - 0.9 Ascending aorta Value Ref Right ventricle Value Ref AAo AP diam, S 4.0 cm --------- CELESTINO, LAX 3.5 cm CELESTINO minor ax, (H) 3.8 cm 1.9 - 3.5 Aortic arch Value Ref A4C mid Arch diam 2.2 cm --------- Left atrium Value Ref Decending aorta Value Ref AP dim, ES 3.10 cm 2.70 - Mychal peak jackie 0.54 m/sec --------- 3.80 ML dim, A4C 3.8 cm Inferior vena cava Value Ref SI dim, A4C 4.6 cm Diam 1.1 cm --------- Vol/bsa, ES, 1-p 25 ml/m^2 11 - 40 A4C Vol/bsa, ES, A/L 27 ml/m^2 16 - 34 Right atrium Value Ref SI dim, ES 4.3 cm 3.4 - 5.3 Legend: (L) and (H) dami values outside specified reference range. Prepared and electronically signed by João Dueñas MD 05/10/2019 16:20
[2019-05-10] MEDS ORDERED: Zolpidem TAB* 10 MG PO PRN (19:15)
[2019-05-10] MEDS: Pantoprazole TAB * 40 MG TAB PO SCH (19:32)
[2019-05-10] MEDS: CMCS: Anastrozole (NF) 1 MG TAB PO SCH (19:32)
[2019-05-10] MEDS ORDERED: Metoprolol Tartrate TAB* 50 mg PO SCH (21:00)
[2019-05-10] MEDS ORDERED: Citalopram TAB* 40 MG PO SCH (21:00)
[2019-05-10] MEDS ORDERED: Gabapentin CAP(*) 100 MG PO SCH (21:00)
[2019-05-10] MEDS ORDERED: Lisinopril TAB* 5 MG PO SCH (21:00)
[2019-05-11] MEDS ORDERED: Levothyroxine TAB* 100 MCG TAB PO SCH ×2 (03:00→06:00)
[2019-05-11 06:08] LABS: ABS Basophils 0.1 10^3/ul (0-0.2); ABS Eosinophils 0.4 10^3/ul (0-0.6); ABS Lymphocytes 1.5 10^3/ul (1.0-4.8); ABS Monocytes 0.8 10^3/ul (0-0.8); ABS Neutrophils 3.9 10^3/ul (1.5-7.7); Eosinophil % 5.7 %; Hematocrit 44 % (35-47); Lymphocyte % 21.9 %; Mean Corpuscular HGB Conc 34 g/dL (31-36); Mean Corpuscular Hemoglobin 34 pg (27-31); Mean Corpuscular Volume 100 fL (80-97); Mean Platelet Volume 8.6 fL (7.4-10.4); Nucleated Red Blood Cells % 0.1; Platelet Count 217 10^3/uL (150-450); Red Blood Count 4.36 10^6 /uL (3.70-4.87); Red Cell Distribution Width 13 % (10-15); White Blood Count 6.6 10^3/uL (3.5-10.8)
[2019-05-11 06:30] LABS: Albumin 3.7 g/dL (3.2-5.2); Albumin/Globulin Ratio 1.3 (1-3); BUN/Creatinine Ratio 21.9 (8-20); Calcium 9.7 mg/dL (8.6-10.3); EGFR African American 70.6 (>60); EGFR Non-African American 58.3 (>60); Globulin 2.9 g/dL (2-4); HDL Cholesterol 48.5 mg/dL; Magnesium 1.8 mg/dL (1.9-2.7); Total Bilirubin 0.8 mg/dL (0.2-1.0); Total Protein 6.6 g/dL (6.4-8.9)
[2019-05-11] MEDS: Pantoprazole TAB * 40 MG TAB PO SCH (07:55)
[2019-05-11] MEDS: CMCS: Anastrozole (NF) 1 MG TAB PO SCH (07:55)
[2019-05-11] MEDS ORDERED: CMCS - Anastrozole (NF) 1 MG TAB PO SCH (09:00)
[2019-05-11] MEDS ORDERED: Pantoprazole TAB * 40 MG TAB PO SCH (09:00)
[2019-05-11] MEDS ORDERED: Levothyroxine TAB* 88 MCG TAB PO SCH (09:00)
[2019-05-11] MEDS ORDERED: Cholecalciferol TAB* 1000 UNITS PO SCH (09:00)
[2019-05-11] MEDS ORDERED: Cyanocobalamin TAB* 500 MCG PO SCH (09:00)
[2019-05-11] MEDS ORDERED: Folic Acid TAB* 1 MG PO SCH (09:00)
[2019-05-11] MEDS ORDERED: Multivitamins/Minerals TAB PO SCH (09:00)
[2019-05-11] MEDS ORDERED: Thiamine TAB* 100 MG TAB PO SCH (09:00)
[2019-05-11] MEDS ORDERED: Regadenoson* 0.4 MG/5 ML SYRINGE ONE (09:35)
[2019-05-11] MEDS ORDERED: Aminophylline IV* 25 MG/ML 10 ML VIAL ONE (09:36)
[2019-05-11 12:12] VITALS: BP 127/88
--- NOTE | 2019-05-11 21:09 | DS ---
CC: Dr. María Elena Catalan; Dr. Yuliet Choudhary; Dr. Ethan Pinzon * DISCHARGE SUMMARY: DATE OF ADMISSION: 05/10/19 DATE OF DISCHARGE: 05/11/19 PRIMARY CARE PROVIDER: María Elena Catalan DO OTHER PROVIDERS: Yuliet Choudhary MD; Ethan Pinzon MD ATTENDING PHYSICIAN: Tawnya Clemons MD * (dictated by LIZBETH Gamble) PRIMARY DIAGNOSES: 1. Atypical chest pain. 2. Elevated alkaline phosphatase. 3. T12, L1 vertebral compression fractures. SECONDARY DIAGNOSES: 1. Hypertension. 2. Hypothyroidism. 3. Right breast cancer, status post lumpectomy x2, radiation therapy, now on anastrozole. 4. Depression. 5. Anxiety. 6. Insomnia. 7. Alcoholism. DISCHARGE MEDICATIONS: Home medications: 1. Anastrozole 1 mg p.o. daily. 2. Cholecalciferol 5000 units p.o. daily. 3. Citalopram 40 mg p.o. daily. 4. Cyanocobalamin 1000 mcg p.o. daily. 5. Folic acid 1 mg p.o. daily. 6. Gabapentin 100 mg p.o. daily. 7. Levothyroxine 100 mcg p.o. daily. 8. Lisinopril 5 mg p.o. daily. 9. Metoprolol tartrate 50 mg p.o. daily. 10. Omeprazole 20 mg p.o. daily. 11. Zolpidem 10 mg p.o. daily. [place] Medications: Thiamine 100 mg p.o. daily. STUDIES WHILE IN THE HOSPITAL: 1. CTA of the chest, impression: No definite evidence of pulmonary embolism is noted. There is some scarring and atelectasis in the right lower lobe and right middle lobe. Large hiatal hernia is noted. Sclerotic lesion at approximately T11 and compression fractures of L1 and T12 are new since previous exam of 12/06/17. I cannot totally exclude metastatic disease in these areas. 2. Liver ultrasound, impression: Echogenic liver consistent with hepatic steatosis. No biliary duct dilation is noted. 3. Transthoracic echocardiogram, summary: LV systolic function normal, estimated EF 60% to 65%, wall motion is normal, no regional wall motion abnormalities, trace MR, no significant AR, trace ER, ascending aorta mildly dilated. 4. CT abdomen and pelvis with contrast, impression: There has been interval development of compression fractures at T12 and L1 since 10/28/17 PET/CT, large hiatal hernia with essentially the entire stomach located in the lower thorax. There are 2 hypoattenuating foci in the liver that are too small to characterize on this CT examination and were not definitely seen on the prior PET/CT; further characterization can be made with liver ultrasound. The liver is homogeneously hypoechoic, dense relative to the spleen, which could be seen in the setting of hepatic steatosis or other infiltrative disease of the liver. At the right posterior T11 vertebral body, there is a new 1.2 cm sporadic bony lesion that was not seen on the PET/CT dated 10/28/17. 5. Nuclear medicine myocardial stress test, impression: No fixed or reversible perfusion defects. Assessment: Low risk. 6. EKG stress test, normal ST changes, no Lexiscan-induced myocardial ischemia by EKG criteria. HISTORY OF PRESENT ILLNESS/HOSPITAL COURSE: Ms. Goldsmith is a 64-year-old female with a past medical history of hypertension, hypothyroidism, right breast cancer , alcoholism, who presented to the ER on 05/10/19 with complaints of chest pain. For full and complete details, please see the history and physical dictated on 05/10/19, but in short, the patient presents with these symptoms. She was noted to have an elevated D-dimer, which prompted a CTA of the chest. This revealed T12, L1 compression fracture, but no pulmonary embolism. The patient was admitted for ACS workup. Troponins were 0.00 x3. Initial EKG at presentation showed T wave inversion in lead III, normal sinus rhythm with a rate of 77. EKG obtained on the morning of discharge showed normal sinus rhythm with a rate of 76 with a flat T wave in lead III, no ST segment changes. A transthoracic echocardiogram revealed no wall motion abnormalities with an ejection fraction of 60% to 65%. Nuclear medicine stress test was low risk. EKG portion shows no myocardial ischemia by EKG criteria. The patient has ruled out for acute coronary syndrome based on the above results. She notes she has not had any chest pain since arrival to the ER and admission. The patient's initial laboratory data revealed a very mildly elevated alk phos, which was relatively new. In the setting of history of breast cancer and new vertebral fracture, there was concern that there may be metastatic disease. Oncology was consulted and recommends followup with Dr. Choudhary, which the patient is agreeable to. An appointment will be scheduled and the patient will be called with appointment date and time. Due to concern for the patient's new compression fracture, it was recommended that she stay for further workup. Dr. Pinzon was consulted and recommended MRI of the L spine to determine acuity with further recommendations to be made after MRI is obtained. The patient was eager to be discharged and did not want further workup. It is important to mention that the patient experienced a fall in July and has since had back pain. She has been working with physical therapy. Likely, her back pain is a result of the vertebral compression fractures. It was recommended that the patient stay for further workup, specifically imaging, but she declined and would like to leave against medical advice. A long discussion was had about possible outcomes if fracture worsens including spinal cord damage or compression and possibly even permanent paralysis. The patient continues to request to be discharged and plans to follow up outpatient with Dr. Pinzon in the future. Discussion was had regarding signs and symptoms to be aware of, such as possible saddle anaesthesia , loss of bowel or bladder function, numbness, tingling, or muscle weakness in the extremities, particularly the lower extremities. At this time, she continues to have mild lumbar pain. She denies chest pain. She is mildly anxious, but has no other complaints. REVIEW OF SYSTEMS: A 14-point review of systems has been performed and all the pertinent positives and negatives are in the HPI. All other systems are negative. PHYSICAL EXAMINATION: General: Ms. Goldsmith is a well-developed, well-nourished, obese, middle-aged white woman, who is sitting up in bed. She appears anxious, but is otherwise pleasant and cooperative. Vital Signs: Temperature 97.9 temporal, heart rate 75, respiratory rate 20, oxygen saturation 96% on room rate , blood pressure 127/88. HEENT: PERRL, EOMI, nonicteric sclerae. Hearing is grossly intact. Oral mucous membranes are moist. There are no lesions. The pharynx is clear. The tongue is at midline. Palate elevates symmetrically. Cardiovascular: Regular rate and rhythm with S1, S2 present without murmurs, rubs, clicks, or gallops. There is no JVD. There is no peripheral edema. Radial and pedal pulses are palpable. Pulmonary: Symmetrical chest expansion without use of accessory muscles. Clear to auscultation bilaterally without rhonchi, wheeze, or rales. Abdomen: Obese. Bowel sounds in all quadrants. Soft, nontender to palpation. No apparent hepatosplenomegaly. Musculoskeletal : Mildly tender to palpation at the midline in the lower lumbar area. Neuro: The patient is awake. She is alert and oriented x3. Cranial nerves II through XII grossly intact. Muscle strength 5/5 bilaterally in upper and lower extremities. [employer] Supervisor strength is equal. DISCHARGE PLAN: Ms. Goldsmith is stable for discharge. DISPOSITION: Against medical advice. CONDITION: Fair. ACTIVITY: As tolerated. MEDICATIONS: 1. Continue B12 and folate. 2. Acetaminophen as needed p.r.n. lumbar pain, do not exceed 4 g daily. EDUCATION: 1. Follow up with primary care provider in 4 to 7 days. 2. Follow up with Dr. Choudhary, Oncology, within 1 week. Office will call with appointment date and time. 3. Follow up with Dr. Pinzon, Neurosurgery, within 1 week. 4. You have decided to leaving against medical advice. Please return to the ER or nearest hospital if you experience any worsening of chest pain, shortness of breath, dizziness, lightheadedness, loss of consciousness, high fevers, chills, night sweats, return for increase in back pain, loss of bowel or bladder function, saddle anesthesia, leg weakness. This is a summarized report of a complex medical history and hospital stay. For further details, please see the entire medical record. TIME SPENT: Approximately 40 minutes were spent on this discharge, greater than half that time spent [id number] with the patient reviewing discharge plans and instructions. LIZBETH LIU [id number]/[facility] #: [id number] FLAVIA
== END 2019-05-11 13:30 | disposition left against medical advice (07) ==
LOC: ED 08:08 → MEDTELE 12:53
PROVIDERS: ADMIT Internal Medicine; ATTEND Internal Medicine
DX: R07.89 Other chest pain (principal); R74.8 Abnormal levels of other serum enzymes; M48.56XA Collapsed vertebra, not elsewhere classified, lumbar region, initial encounter for fracture; I10 Essential (primary) hypertension; E03.9 Hypothyroidism, unspecified; Z85.3 Personal history of malignant neoplasm of breast; Z92.21 Personal history of antineoplastic chemotherapy; F32.9 Major depressive disorder, single episode, unspecified; F41.9 Anxiety disorder, unspecified; G47.00 Insomnia, unspecified; F10.20 Alcohol dependence, uncomplicated; Z79.899 Other long term (current) drug therapy
CPT/HCPCS: 36415; 71045; 71275; 74177; 76705; 78452; 80053; 80061; 80074; 80320; 81003; 83036; 83605; 83735; 84443; 84484; 85025; 85379; 85610; 85730; 93005; 93017; 93306; 96372; 99223; 99226; 99283; A9270-GY; A9502; G0378; G0480; J0280; J1650; J2785; J3411; Q9967

== ENCOUNTER 2019-06-05 11:36 | Emergency (ER) | payer MEDICARE, BC ==
--- NOTE | 2019-06-05 13:38 | ED ---
GI/ HPI - HPI Summary HPI Summary: The patient is a 64 y/o F presenting to [facility] with a chief complaint of one episode of urinary incontinence this morning. She reports that she had found out a few weeks ago that she had two vertebral fractures after sustaining a fall many months ago. She was told to return if she experienced any numbness in the legs or any urinary or fecal incontinence. Today, she experienced an episode with a moderate amount of urine expelled, which is more than will come out if she laughs or coughs. She had experienced an episode similar to this a few months ago prior to knowing about the fractures. She denies any numbness between the buttocks and vagina or in the legs, and her back is not currently in pain. She denies dysuria. She has had no issues with passing stool. Her symptoms are currently rate 4/10 in severity. PMHx: HTN, thyroid disease, angina , two vaginal births. Nonsmoker, daily EtOH, no substance use. Medications reviewed. Allergies noted. - History of Current Complaint Chief Complaint: EDUrogenitalProblems Time Seen by Provider: 06/05/19 13:18 Stated Complaint: GENERAL ILLNESS Hx Obtained From: Patient Onset/Duration: Started Hours Ago Timing: Lasting Minutes Severity: Mild Current Severity: Mild Pain Intensity: 4 Associated Signs and Symptoms: Positive: Other: - urinary incontinence; Negative : fecal incontinence, numbness between vagina and buttocks, numbness in legs. Negative: Back Pain, Dysuria Aggravating Factor(s): Nothing Alleviating Factor(s): Nothing - Allergy/Home Medications Allergies/Adverse Reactions: Allergies Allergy/AdvReac Type Severity Reaction Status Date / Time ibuprofen Allergy Intermediate GI Upset Verified 05/10/19 08:17 Home Medications: Home Medications Levothyroxine TAB* [Synthroid TAB*] 88 mcg PO DAILY 06/05/19 [History Confirmed 06/05/19] Metoprolol Succinate XL TAB* [Toprol XL TAB*] 50 mg PO DAILY 06/05/19 [History Confirmed 06/05/19] PMH/Surg Hx/FS Hx/Imm Hx Endocrine/Hematology History: Reports: Hx Thyroid Disease - HYPO Denies: Hx Bone Marrow Disease, Hx Diabetes, Hx Sickle Cell Disease, Hx Anemia Cardiovascular History: Reports: Hx Angina, Hx Hypertension - CONTROLLED WITH MEDICATION HIGHER IN AM Denies: Hx Coronary Artery Disease, Hx Hypercholesterolemia, Hx Myocardial Infarction, Hx Valvular Heart Disease Respiratory History: Denies: Hx Asthma, Hx Chronic Obstructive Pulmonary Disease (COPD) History: Denies: Hx Chronic Renal Failure, Hx Renal Disease Sensory History: Reports: Hx Contacts or Glasses - GLASSES Denies: Hx Cataracts, Hx Glaucoma, Hx Hearing Aid Opthamlomology History: Reports: Hx Contacts or Glasses - GLASSES Denies: Hx Cataracts, Hx Glaucoma Psychiatric History: Reports: Hx Anxiety, Hx Depression - Cancer History Cancer Type, Location and Year: breast Hx Chemotherapy: No - 09/2017 Hx Radiation Therapy: Yes - Surgical History Surgical History: Yes Surgery Procedure, Year, and Place: drain right breast Hx Anesthesia Reactions: No - Immunization History Date of Tetanus Vaccine: unknown Infectious Disease History: No Infectious Disease History: Denies: Traveled Outside the [place] in Last 30 Days - Family History Known Family History: Positive: Hypertension - Social History Alcohol Use: Daily Alcohol Amount: BOTTLE OF WINE Hx Substance Use: No Substance Use Type: Reports: None Hx Tobacco Use: No Smoking Status (MU): Never Smoked Tobacco Have You Smoked in the Last Year: No Review of Systems Positive: incontinence - one episode, moderate amount . Negative: dysuria Negative: Other - back pain Negative: Numbness - between buttocks and vagina or legs All Other Systems Reviewed And Are Negative: Yes Physical Exam - Summary Physical Exam Summary: Constitutional: Well-developed, Well-nourished, Alert. (-) Distressed Skin: Warm, Dry HENT: Normocephalic; Atraumatic Eyes: Conjunctiva normal Neck: Musculoskeletal ROM normal neck. (-) JVD, (-) Stridor, (-) Tracheal deviation Cardio: Rhythm regular, rate normal, Heart sounds normal; Intact distal pulses. Radial pulses are 2+ and symmetric. (-) Murmur Pulmonary/Chest wall: Effort normal. (-) Respiratory distress, (-) Wheezes, (-) Rales Abd: Soft. (-) Tenderness, (-) Distension, (-) Guarding, (-) Rebound Musculoskeletal: (-) Edema Lymph: (-) Cervical adenopathy Neuro: Alert, Oriented x3, Walks with normal gait Rectal: Good rectal tone Psych: Mood and affect Normal Triage Information Reviewed: Yes Vital Signs On Initial Exam: Initial Vitals Temp Pulse Resp BP Pulse Ox 97.7 F 91 18 129/103 97 06/05/19 11:45 06/05/19 11:45 06/05/19 11:45 06/05/19 11:45 06/05/19 11:45 Vital Signs Reviewed: Yes Procedures - Sedation Patient Received Moderate/Deep Sedation with Procedure: No Diagnostics - Vital Signs Vital Signs Temp Pulse Resp BP Pulse Ox 06/05/19 11:45 97.7 F 91 18 129/103 97 - Laboratory Lab Statement: Any lab studies that have been ordered have been reviewed, and results considered in the medical decision making process. Re-Evaluation - Re-Evaluation First Eval Re-Evaluation Time: 14:05 Comment: Post residual void of 57mls. Second Eval Re-Evaluation Time: 16:00 Comment: We discussed results and plan for discharge. GIGU Course/Dx - Course Course Of Treatment: Patient is here to 1 episode of urinary incontinence this morning. Patient was recently diagnosed with multiple fractures in her back that she sustained in July was not diagnosed until recently. Patient has stress incontinence at baseline. Patient had a small episode of incontinence which was concerning to her. However, patient is ambulatory to weakness in her legs, no saddle anesthesia, has normal rectal tone, and had a postvoid residual of only 50 cc of urine. Patient does not have the symptoms of cauda equina so patient did not have an MRI. Patient had a UA which was normal. - Diagnoses Provider Diagnoses: Urinary incontinence Discharge ED - Sign-Out/Discharge Documenting (check all that apply): Patient Departure - Patient will be discharged home. - Discharge Plan Condition: Stable Disposition: HOME Patient Education Materials: Urinary Incontinence (ED) Referrals: María Elena Catalan DO [Primary Care Provider] - 3 Days Additional Instructions: Please come back to the emergency department if you experience frequent urinary incontinence, issues passing stool, numbness between your vagina and butt, inability to walk, or any other concerning symptoms. Follow up with your primary care provider in 1-3 days. - Billing Disposition and Condition Condition: STABLE Disposition: Home - Attestation Statements Document Initiated by Scribe: Yes Documenting Scribe: Elina Stewart Provider For Whom Adonay is Documenting (Include Credential): Dr. Herbert Goldman MD Scribe Attestation: Elina Norris scribed for Dr. Herbert Goldman MD on 06/05/19 at 2117. Scribe Documentation Reviewed: Yes Provider Attestation: The documentation as recorded by the scribe, Elina Stewart accurately reflects the service I personally performed and the decisions made by me, Dr. Herbert Goldman MD Status of Scribe Document: Viewed
[2019-06-05 15:18] LABS: Urine Appearance Clear; Urine Bilirubin Negative (Negative); Urine Blood Negative (Negative); Urine Color Yellow; Urine Glucose Negative (Negative); Urine Ketones 1+ (Negative); Urine Nitrite Negative (Negative); Urine Protein Negative (Negative); Urine Specific Gravity 1.015 (1.010-1.030); Urine Urobilinogen Negative (Negative)
[2019-06-05 16:44] VITALS: BP 134/108
== END 2019-06-05 16:40 | disposition home or self-care (01) ==
LOC: ED 11:36
DX: R32 Unspecified urinary incontinence (principal); E03.9 Hypothyroidism, unspecified; I10 Essential (primary) hypertension; Z88.6 Allergy status to analgesic agent
CPT/HCPCS: 81003; 99283

== ENCOUNTER 2019-10-25 07:30 | Observation (INO) ==
[~2019-10-25 07:30] MED LIST changes: -Buffered Lidocaine 0.9% SYRIN* 5 ML/SYR SYRINGE INTRADERM ONE; -Famotidine IV* 10 MG/ML 2 ML (20 mg) IV ONE; +Lactated Ringers 1000 ml BAG 1,000 ML IV SCH
[2019-11-01] MEDS ORDERED: Famotidine IV 10 MG/ML 2 ml VIAL (20 mg) IV ONE (06:00)
[2019-11-01] MEDS ORDERED: Lactated Ringers 1000 ml BAG 1,000 ML IV SCH (06:00)
[2019-11-01] MEDS ORDERED: ceFAZolin 2 GM PREMIX in ORs 2 GM/50 ML BAG ONE (06:29)
[2019-11-01] MEDS ORDERED: Famotidine IV 10 MG/ML 2 ml VIAL (20 mg) ONE (06:29)
[2019-11-01] MEDS ORDERED: Remifentanil 2 MG VIAL ONE ×2 (06:49→10:16)
[2019-11-01] MEDS ORDERED: Midazolam 2 mg/2 ml VIAL 1 mg/ml 2 ml VIAL (2 mg) ONE (06:49)
[2019-11-01] MEDS ORDERED: fentaNYL 100 mcg/2 ml 50 MCG/ML VIAL ONE ×2 (06:49→11:45)
[2019-11-01] MEDS ORDERED: Rocuronium 50 mg VIAL 10 mg/ml 5 ml VIAL (50 mg) ONE (06:50)
[2019-11-01] MEDS ORDERED: Bacitracin INJECTION 50,000 UNITS ONE (06:51)
[2019-11-01] MEDS ORDERED: Metoclopramide 5 MG/ML VIAL (10 mg) ONE (07:04)
[2019-11-01] MEDS ORDERED: Phenylephrine 40 mcg/mL 10mL (400mcg) SYRINGE ONE ×2 (07:04→08:42)
[2019-11-01] MEDS ORDERED: Ondansetron 4 mg VIAL 2 MG/ML 2 ml VIAL ONE (07:04)
[2019-11-01] MEDS ORDERED: Lidocaine 2% PF 5 ML VIAL ONE (07:04)
[2019-11-01] MEDS ORDERED: Succinylcholine 200 mg VIAL 20 mg/ml 10 ml VIAL (200 mg) ONE (07:04)
[2019-11-01] MEDS ORDERED: Propofol 10 MG/ML 20 ML BTL ONE (07:04)
[2019-11-01] MEDS ORDERED: Naloxone 0.4 mg VIAL 0.4 mg/ml 1 ml VIAL IV PRN (09:19)
[2019-11-01] MEDS ORDERED: Ondansetron 4 mg VIAL 2 MG/ML 2 ml VIAL IV PRN (09:19)
[2019-11-01] MEDS ORDERED: DiMENhydriNATE IV 50 mg/ml 1 ml VIAL IV PUSH PRN (09:19)
[2019-11-01] MEDS ORDERED: HYDROmorphone 1 MG/1 ML SYRINGE IV PRN (09:19)
[2019-11-01] MEDS ORDERED: Propofol 2,000 MG/200 ML BTL ONE (10:08)
[2019-11-01] MEDS ORDERED: HYDROmorphone 1 MG/1 ML SYRINGE ONE (10:32)
[2019-11-01] MEDS: fentaNYL 100 mcg/2 ml 50 MCG/ML VIAL IV PRN ×2 (11:47→12:14)
[2019-11-01] MEDS ORDERED: HYDROcodone/ACETAMIN 5/325 mg TAB PO PRN (12:26)
[2019-11-01] MEDS ORDERED: Magnesium Hydroxide LIQ 30 ML UDC PO PRN (12:26)
[2019-11-01] MEDS ORDERED: LORazepam 1 mg TAB (*) PO PRN (15:06)
[2019-11-01] MEDS: HYDROcodone/ACETAMIN 5/325 mg TAB PO PRN ×2 (16:37→21:33)
[2019-11-02] MEDS ORDERED: CMC:Anastrozole 1 mg TAB (NF) PO SCH (09:00)
[2019-11-02 12:18] VITALS: BP 126/89
== END 2019-11-02 12:45 | disposition home or self-care (01) ==
LOC: AA 11-01 05:52 → INTOOBSV 11-01 05:52 → SSU 11-01 13:46
PROVIDERS: ADMIT Neurological Surgery; ATTEND Internal Medicine

== ENCOUNTER 2020-01-20 20:46 | Inpatient (IN) ==
[2020-01-20] MEDS ORDERED: Heparin - STEMI 5,000 UNITS/ML 1 ml VIAL IV ONE (20:52)
[2020-01-20 21:08] LABS: ABS Eosinophils 0.1 10^3/ul (0-0.6); ABS Lymphocytes 0.8 10^3/ul (1.0-4.8); ABS Monocytes 0.3 10^3/ul (0-0.8); ABS Neutrophils 1.7 10^3/ul (1.5-7.7); Eosinophil % 2.5 %; Hematocrit 35 % (35-47); Hemoglobin 12.1 g/dL (12.0-16.0); Lymphocyte % 27.1 %; Mean Corpuscular HGB Conc 34 g/dL (31-36); Mean Corpuscular Hemoglobin 35 pg (27-31); Mean Corpuscular Volume 103 fL (80-97); Mean Platelet Volume 7.9 fL (7.4-10.4); Nucleated Red Blood Cells % 0.1; Platelet Count 229 10^3/uL (150-450); Red Blood Count 3.43 10^6 /uL (3.70-4.87); Red Cell Distribution Width 14 % (10-15)
[2020-01-20] MEDS: NS 0.9% 1000 ml BAG 1,000 ML IV SCH (21:12)
[2020-01-20 21:15] LABS: Activated Partial Thrombo Time 21.4 seconds (26.0-38.0); INR 1.01 (0.82-1.09)
[2020-01-20] MEDS ORDERED: VERAPAMIL 2.5 MG/ML 2 ML VIAL ** 5 mg/2 ml ONE (21:26)
[2020-01-20] MEDS ORDERED: Heparin 2 UNITS/ML 1000 mls 3,000 ML IV ONE (21:26)
[2020-01-20] MEDS ORDERED: nitroGLYCERIN DRIP 25,000 MCG/250 ML BTL ONE (21:26)
[2020-01-20] MEDS ORDERED: Heparin 1,000 UNIT/ML 10 ml (10,000 UNITS) CATHLAB/DIALYSIS ONE (21:26)
[2020-01-20] MEDS ORDERED: Lidocaine 1% VIAL 10 MG/ML VIAL ONE (21:27)
[2020-01-20] MEDS ORDERED: Iodixanol 320 (CONTRAST) 100 ML SDV ONE ×2 (21:27→22:18)
[2020-01-20] MEDS ORDERED: HYDROmorphone 1 MG/1 ML SYRINGE ONE (21:28)
[2020-01-20] MEDS ORDERED: diPHENhydraMINE IV 50 MG/ML 1 ml VIAL (BENADRYL) ONE (21:28)
[2020-01-20 21:33] LABS: Anion Gap 8 mmol/L (2-11); Blood Urea Nitrogen 20 mg/dL (6-24); CO2 Carbon Dioxide 22 mmol/L (22-32); Chloride 104 mmol/L (101-111); Glucose 101 mg/dL (70-100); Potassium 4.3 mmol/L (3.5-5.0); Sodium 134 mmol/L (135-145)
[2020-01-20 21:34] LABS: ALT 13 U/L (7-52); AST 17 U/L (13-39); Albumin 3.7 g/dL (3.2-5.2); Albumin/Globulin Ratio 1.2 (1-3); Alkaline Phosphatase 63 U/L (34-104); BUN/Creatinine Ratio 15.5 (8-20); Calcium 9.2 mg/dL (8.6-10.3); EGFR African American 50.2 (>60); EGFR Non-African American 41.5 (>60); Total Protein 6.7 g/dL (6.4-8.9)
[2020-01-20 21:39] LABS: Troponin I 0.39 ng/mL (<0.03)
[2020-01-20] MEDS ORDERED: Midazolam 5 mg/5 ml VIAL 1 mg/ml 5 ml VIAL (5 mg) ONE (21:51)
[2020-01-20] MEDS ORDERED: Adenosine 3 MG/ML 2 ml VIAL (6 mg) ONE (22:08)
[2020-01-20] MEDS ORDERED: Bivalirudin 250 MG VIAL ONE (22:13)
[2020-01-20] MEDS ORDERED: NitroPRUSSide 25 mg/ml 2 ml VIAL (50 mg) IV ONE (22:15)
[2020-01-20] MEDS ORDERED: Eptifibatide IV (Load dose) 2 MG/ML 10 ml VIAL ONE (22:53)
[2020-01-20] MEDS ORDERED: Heparin 5000 UNITS/ML 1 mL VIAL IV SCH (23:45)
[2020-01-20] MEDS ORDERED: Heparin DRIP 25,000 UNITS BAG 25,000 UNITS/500 ML BAG IV SCH (23:45)
[2020-01-20] MEDS ORDERED: Prochlorperazine 5 mg/ml 2 ml VIAL (10 mg) IV PRN (23:46)
[2020-01-21 00:34] LABS: ABS Lymphocytes 0.6 10^3/ul (1.0-4.8); ABS Monocytes 0.2 10^3/ul (0-0.8); ABS Neutrophils 1.7 10^3/ul (1.5-7.7); Eosinophil % 1.9 %; Hematocrit 33 % (35-47); Hemoglobin 11.3 g/dL (12.0-16.0); Lymphocyte % 23.7 %; Mean Corpuscular HGB Conc 34 g/dL (31-36); Mean Corpuscular Hemoglobin 35 pg (27-31); Mean Corpuscular Volume 103 fL (80-97); Mean Platelet Volume 7.8 fL (7.4-10.4); Nucleated Red Blood Cells % 0.2; Platelet Count 204 10^3/uL (150-450); Red Blood Count 3.24 10^6 /uL (3.70-4.87); Red Cell Distribution Width 14 % (10-15); White Blood Count 2.6 10^3/uL (3.5-10.8)
[2020-01-21 00:57] LABS: TSH Ultra Thyroid Stim Horm 0.27 mcIU/mL (0.34-5.60)
[2020-01-21 01:06] LABS: Blood Urea Nitrogen 18 mg/dL (6-24); Creatine Kinase 457 U/L (10-223); EGFR African American 54.6 (>60); EGFR Non-African American 45.1 (>60)
[2020-01-21 01:11] LABS: CKMB ng/mL 89.1 ng/mL (0.6-6.3); Troponin I 7.19 ng/mL (<0.03)
[2020-01-21] MEDS: NS 0.9% 1000 ml BAG 1,000 ML IV SCH ×2 (01:33→07:29)
[2020-01-21 04:17] LABS: Troponin I 14.82 ng/mL (<0.03)
[2020-01-21 05:47] LABS: ABS Eosinophils 0.1 10^3/ul (0-0.6); ABS Lymphocytes 0.8 10^3/ul (1.0-4.8); ABS Monocytes 0.3 10^3/ul (0-0.8); ABS Neutrophils 1.3 10^3/ul (1.5-7.7); Eosinophil % 2.7 %; Hematocrit 31 % (35-47); Hemoglobin 10.7 g/dL (12.0-16.0); Lymphocyte % 32.3 %; Mean Corpuscular HGB Conc 34 g/dL (31-36); Mean Corpuscular Hemoglobin 35 pg (27-31); Mean Corpuscular Volume 102 fL (80-97); Nucleated Red Blood Cells % 0.1; Platelet Count 179 10^3/uL (150-450); Red Blood Count 3.04 10^6 /uL (3.70-4.87); Red Cell Distribution Width 14 % (10-15); White Blood Count 2.5 10^3/uL (3.5-10.8)
[2020-01-21 06:02] LABS: ALT 16 U/L (7-52); AST 68 U/L (13-39); Albumin 3.2 g/dL (3.2-5.2); Albumin/Globulin Ratio 1.3 (1-3); Alkaline Phosphatase 54 U/L (34-104); Anion Gap 6 mmol/L (2-11); BUN/Creatinine Ratio 13.5 (8-20); Blood Urea Nitrogen 15 mg/dL (6-24); CO2 Carbon Dioxide 23 mmol/L (22-32); Calcium 8.2 mg/dL (8.6-10.3); Chloride 106 mmol/L (101-111); Cholesterol 157 mg/dL; Creatine Kinase 695 U/L (10-223); EGFR African American 59.7 (>60); EGFR Non-African American 49.3 (>60); Globulin 2.5 g/dL (2-4); Glucose 90 mg/dL (70-100); HDL Cholesterol 52.8 mg/dL; LDL Cholesterol 89 mg/dL; Potassium 3.9 mmol/L (3.5-5.0); Sodium 135 mmol/L (135-145); Total Protein 5.7 g/dL (6.4-8.9); Triglycerides 78 mg/dL
[2020-01-21 06:06] LABS: CKMB ng/mL 133.1 ng/mL (0.6-6.3)
[2020-01-21 06:12] LABS: Troponin I 19.85 ng/mL (<0.03)
[2020-01-21 06:41] LABS: Free T4 1.24 ng/dL (0.61-1.12)
[2020-01-21] MEDS ORDERED: Perflutren Lipid Microsphere 3 ML VIAL ONE (08:30)
[2020-01-21] MEDS ORDERED: Thiamine 100 MG/ML 2 ml VIAL (200 mg) IM ONE (08:38)
[2020-01-21] MEDS ORDERED: Lorazepam PYXIS KEY PRN (08:47)
[2020-01-21] MEDS ORDERED: Multivitamins/Minerals TAB PO SCH (09:00)
[2020-01-21] MEDS ORDERED: LORazepam 2 mg VIAL 1 ml IV PUSH SCH (09:00)
[2020-01-21] MEDS ORDERED: Cholecalciferol (VIT D3) 1,000 unit TAB PO SCH (09:00)
[2020-01-21 11:10] LABS: Albumin 3.1 g/dL (3.2-5.2); Albumin/Globulin Ratio 1.3 (1-3); Globulin 2.4 g/dL (2-4); Indirect Bilirubin 0.8 mg/dL (0.3-1.0); Total Bilirubin 0.9 mg/dL (0.2-1.0); Total Protein 5.5 g/dL (6.4-8.9)
[2020-01-21 12:01] VITALS: BP 117/83
[2020-01-21 12:27] LABS: ABS Eosinophils 0.1 10^3/ul (0-0.6); ABS Lymphocytes 0.6 10^3/ul (1.0-4.8); ABS Monocytes 0.3 10^3/ul (0-0.8); ABS Neutrophils 1.7 10^3/ul (1.5-7.7); Hematocrit 33 % (35-47); Lymphocyte % 23.8 %; Mean Corpuscular HGB Conc 34 g/dL (31-36); Mean Corpuscular Hemoglobin 35 pg (27-31); Mean Corpuscular Volume 104 fL (80-97); Mean Platelet Volume 8.1 fL (7.4-10.4); Nucleated Red Blood Cells % 0.1; Platelet Count 201 10^3/uL (150-450); Red Blood Count 3.15 10^6 /uL (3.70-4.87); Red Cell Distribution Width 14 % (10-15); White Blood Count 2.7 10^3/uL (3.5-10.8)
[2020-01-21 12:46] LABS: CKMB ng/mL 86.4 ng/mL (0.6-6.3)
[2020-01-21 12:49] LABS: Troponin I 17.76 ng/mL (<0.03)
[2020-01-21 13:03] LABS: Creatine Kinase 640 U/L (10-223)
== END 2020-01-21 12:39 | disposition short-term general hospital (02) | DRG 251 ==
LOC: ED 20:46 → CHICATH 21:36 → ICU 23:26
PROVIDERS: ADMIT Internal Medicine Cardiovascular Disease

== ENCOUNTER 2020-03-15 09:04 | Inpatient (IN) ==
[2020-03-15] MEDS ORDERED: NS 0.9% 1000 ml BAG 1,000 ML IV ONE ×2 (09:57→14:00)
[2020-03-15 10:43] LABS: Hematocrit 31 % (35-47); Hemoglobin 10.6 g/dL (12.0-16.0); Mean Corpuscular HGB Conc 34 g/dL (31-36); Mean Corpuscular Hemoglobin 34 pg (27-31); Mean Corpuscular Volume 101 fL (80-97); Mean Platelet Volume 8.1 fL (7.4-10.4); Platelet Count 199 10^3/uL (150-450); Red Blood Count 3.13 10^6 /uL (3.70-4.87); Red Cell Distribution Width 14 % (10-15); White Blood Count 1.9 10^3/uL (3.5-10.8)
[2020-03-15 10:54] LABS: ABS Lymphocytes 0.9 10^3/ul (1.0-4.8); ABS Monocytes 0.2 10^3/ul (0-0.8); ABS Neutrophils 0.8 10^3/ul (1.5-7.7); Eosinophil % 1.7 %; Lymphocyte % 47.9 %; Nucleated Red Blood Cells % 0.1
[2020-03-15 11:16] LABS: Albumin 3.8 g/dL (3.2-5.2); Albumin/Globulin Ratio 1.2 (1-3); BUN/Creatinine Ratio 16.1 (8-20); Calcium 9.9 mg/dL (8.6-10.3); EGFR African American 59.1 (>60); EGFR Non-African American 48.8 (>60); Globulin 3.3 g/dL (2-4); Magnesium 1.6 mg/dL (1.9-2.7); Potassium 4.3 mmol/L (3.5-5.0); Total Bilirubin 0.9 mg/dL (0.2-1.0); Total Protein 7.1 g/dL (6.4-8.9)
[2020-03-15 12:01] LABS: TSH Ultra Thyroid Stim Horm 0.02 mcIU/mL (0.34-5.60)
[2020-03-15 12:02] LABS: Urine Appearance Clear; Urine Bilirubin Negative (Negative); Urine Blood Negative (Negative); Urine Color Straw; Urine Glucose Negative (Negative); Urine Ketones Trace (Negative); Urine Nitrite Negative (Negative); Urine Protein Negative (Negative); Urine Urobilinogen Negative (Negative)
[2020-03-15] MEDS ORDERED: Magnesium Sulfate 2 gm BAG 2 GM/50 ML BAG IVPB ONE (12:02)
[2020-03-15 13:38] LABS: T4, Total 11.68 mcg/dL (6.09-12.23)
[2020-03-15 13:42] LABS: Free T3 3.9 pg/mL (2.5-3.9)
[2020-03-15] MEDS ORDERED: Lorazepam PYXIS KEY ONE (14:21)
[2020-03-15 15:21] LABS: Free T4 1.52 ng/dL (0.61-1.12)
[2020-03-15] MEDS ORDERED: Ondansetron 4 mg VIAL 2 MG/ML 2 ml VIAL IV PRN (17:07)
[2020-03-15] MEDS ORDERED: Thiamine 100 MG/ML 2 ml VIAL (200 mg) IM ONE (17:22)
[2020-03-15] MEDS: Enoxaparin 40 MG/0.4 ML SYR SUBCUT SCH (20:38)
[2020-03-16] MEDS ORDERED: Iodixanol (CONTRAST) 320 MG/ML 100 ML SDV IV ONE (01:29)
[2020-03-16 07:30] LABS: Hematocrit 26 % (35-47); Hemoglobin 8.9 g/dL (12.0-16.0); Mean Corpuscular HGB Conc 34 g/dL (31-36); Mean Corpuscular Hemoglobin 35 pg (27-31); Mean Corpuscular Volume 102 fL (80-97); Mean Platelet Volume 8.2 fL (7.4-10.4); Platelet Count 148 10^3/uL (150-450); Red Blood Count 2.55 10^6 /uL (3.70-4.87); Red Cell Distribution Width 14 % (10-15); White Blood Count 1.7 10^3/uL (3.5-10.8)
[2020-03-16 07:39] LABS: BUN/Creatinine Ratio 13.9 (8-20); Calcium 9.5 mg/dL (8.6-10.3); EGFR African American 57.3 (>60); EGFR Non-African American 47.4 (>60); Potassium 4.2 mmol/L (3.5-5.0)
[2020-03-16 07:50] LABS: ABS Basophils 0.1 10^3/ul (0-0.2); ABS Lymphocytes 0.9 10^3/ul (1.0-4.8); ABS Monocytes 0.2 10^3/ul (0-0.8); ABS Neutrophils 0.6 10^3/ul (1.5-7.7); Eosinophil % 1.7 %; Lymphocyte % 51.5 %
[2020-03-16] MEDS: Cholecalciferol (VIT D3) 1,000 unit TAB PO SCH (07:56)
[2020-03-16] MEDS: Multivitamins/Minerals TAB PO SCH (07:57)
[2020-03-16] MEDS: Aspirin EC 81 mg TAB.EC (enteric coated) PO SCH (07:58)
[2020-03-16] MEDS ORDERED: NS 0.9% 500 ml BAG 500 ML IV ONE (14:30)
[2020-03-16] MEDS: Enoxaparin 40 MG/0.4 ML SYR SUBCUT SCH (17:48)
[2020-03-16] MEDS ORDERED: Rosuvastatin 10 mg TAB (NF) PO SCH (21:00)
[2020-03-16] MEDS ORDERED: CMCS:Rosuvastatin 10 mg TAB (NF) PO SCH (21:00)
[2020-03-17 07:09] LABS: Hematocrit 27 % (35-47); Hemoglobin 9.2 g/dL (12.0-16.0); Mean Corpuscular HGB Conc 35 g/dL (31-36); Mean Corpuscular Hemoglobin 35 pg (27-31); Mean Corpuscular Volume 102 fL (80-97); Mean Platelet Volume 8.4 fL (7.4-10.4); Platelet Count 154 10^3/uL (150-450); Red Blood Count 2.61 10^6 /uL (3.70-4.87); Red Cell Distribution Width 14 % (10-15); White Blood Count 1.5 10^3/uL (3.5-10.8)
[2020-03-17 07:16] LABS: ABS Lymphocytes 0.8 10^3/ul (1.0-4.8); ABS Monocytes 0.2 10^3/ul (0-0.8); ABS Neutrophils 0.5 10^3/ul (1.5-7.7); Eosinophil % 1.8 %; Lymphocyte % 50.1 %; Nucleated Red Blood Cells % 0.2
[2020-03-17 07:26] LABS: BUN/Creatinine Ratio 15.2 (8-20); Calcium 8.9 mg/dL (8.6-10.3); EGFR African American 59.1 (>60); EGFR Non-African American 48.8 (>60); Potassium 4.2 mmol/L (3.5-5.0)
[2020-03-17] MEDS: Multivitamins/Minerals TAB PO SCH (10:12)
[2020-03-17] MEDS: Cholecalciferol (VIT D3) 1,000 unit TAB PO SCH (10:13)
[2020-03-17] MEDS: Aspirin EC 81 mg TAB.EC (enteric coated) PO SCH (10:13)
[2020-03-17] MEDS ORDERED: NS 0.9% 1000 ml BAG 1,000 ML IV SCH (15:45)
[2020-03-17 16:46] VITALS: BP 110/61
== END 2020-03-17 19:58 | disposition home or self-care (01) | DRG 809 ==
LOC: ED 09:04 → MED 17:07 → SSU 03-16 16:48
PROVIDERS: ADMIT Hospitalist; ATTEND Student in an Organized Health Care Education/Training Program

== ENCOUNTER 2020-05-22 11:15 | Inpatient (IN) ==
[2020-05-22] MEDS ORDERED: NS 0.9% 1000 ml BAG 1,000 ML IV ONE (12:29)
[2020-05-22] MEDS ORDERED: Morphine 4 MG/ML VIAL (1 ml) IV ONE ×3 (12:29→14:38)
[2020-05-22 12:48] LABS: ABS Eosinophils 0.1 10^3/ul (0-0.6); ABS Lymphocytes 0.9 10^3/ul (1.0-4.8); ABS Monocytes 0.5 10^3/ul (0-0.8); ABS Neutrophils 2.4 10^3/ul (1.5-7.7); Eosinophil % 2.1 %; Hematocrit 26 % (35-47); Lymphocyte % 21.8 %; Mean Corpuscular HGB Conc 34 g/dL (31-36); Mean Corpuscular Hemoglobin 36 pg (27-31); Mean Corpuscular Volume 105 fL (80-97); Mean Platelet Volume 8.7 fL (7.4-10.4); Platelet Count 229 10^3/uL (150-450); Red Cell Distribution Width 17 % (10-15); White Blood Count 3.9 10^3/uL (3.5-10.8)
[2020-05-22 13:11] LABS: ALT 16 U/L (7-52); AST 20 U/L (13-39); Albumin 3.6 g/dL (3.2-5.2); Albumin/Globulin Ratio 1.1 (1-3); Alkaline Phosphatase 57 U/L (34-104); Anion Gap 9 mmol/L (2-11); BUN/Creatinine Ratio 9.1 (8-20); Blood Urea Nitrogen 17 mg/dL (6-24); CO2 Carbon Dioxide 18 mmol/L (22-32); Calcium 8.9 mg/dL (8.6-10.3); Chloride 107 mmol/L (101-111); EGFR African American 32.6 (>60); EGFR Non-African American 26.9 (>60); Globulin 3.2 g/dL (2-4); Glucose 103 mg/dL (70-100); Potassium 3.7 mmol/L (3.5-5.0); Sodium 134 mmol/L (135-145); Total Protein 6.8 g/dL (6.4-8.9)
[2020-05-22 13:27] LABS: Alcohol, S < 10 mg/dL (<10)
[2020-05-22] MEDS ORDERED: Ondansetron 4 mg VIAL 2 MG/ML 2 ml VIAL IV PRN (16:05)
[2020-05-22] MEDS ORDERED: Naloxone Nasal Spray 4 MG/0.1 ML NASAL.SPR INTRANASAL PRN (16:25)
[2020-05-22 16:28] LABS: Folate > 20.00 ng/mL (>3.99)
[2020-05-22 16:29] LABS: Vitamin B12 437 pg/mL (180-914)
[2020-05-22] MEDS ORDERED: Enoxaparin 40 MG/0.4 ML SYR SUBCUT SCH (17:00)
[2020-05-22 17:29] LABS: Urine Appearance Clear; Urine Bilirubin Negative (Negative); Urine Blood 1+ (Negative); Urine Color Straw; Urine Glucose Negative (Negative); Urine Ketones Negative (Negative); Urine Nitrite Negative (Negative); Urine Protein Negative (Negative); Urine Specific Gravity 1.006 (1.010-1.030); Urine Urobilinogen Negative (Negative)
[2020-05-22 17:37] LABS: Urine Bacteria Absent (Absent); Urine Red Blood Cell Trace(0-2/hpf) (Absent); Urine Squamous Epithelial Cell Present (Absent); Urine White Blood Cell Trace(0-5/hpf) (Absent)
[2020-05-22 17:50] LABS: Urine Benzodiazepine Screen None Detected (None Detect); Urine Cannabinoids Screen None Detected (None Detect); Urine Opiates Screen Presumptive Positive (None Detect)
[2020-05-22] MEDS: NS 0.9% 1000 ml BAG 1,000 ML IV SCH (18:09)
[2020-05-22] MEDS: Enoxaparin 30 MG/0.3 ML SYR SUBCUT SCH (18:11)
[2020-05-22] MEDS: ABEMACICLIB 150 MG PO SCH (19:45)
[2020-05-22] MEDS: CMCS:Rosuvastatin 10 mg TAB (NF) PO SCH (19:46)
[2020-05-22] MEDS ORDERED: HYDROmorphone 1 MG/1 ML SYRINGE IV ONE (22:37)
[2020-05-23] MEDS: NS 0.9% 1000 ml BAG 1,000 ML IV SCH ×2 (04:57→15:33)
[2020-05-23 06:27] LABS: BUN/Creatinine Ratio 8.4 (8-20); Calcium 8.3 mg/dL (8.6-10.3); EGFR African American 37.1 (>60); EGFR Non-African American 30.7 (>60); Potassium 3.5 mmol/L (3.5-5.0)
[2020-05-23 06:32] LABS: Hematocrit 25 % (35-47); Hemoglobin 8.4 g/dL (12.0-16.0); Mean Corpuscular HGB Conc 34 g/dL (31-36); Mean Corpuscular Hemoglobin 36 pg (27-31); Mean Corpuscular Volume 105 fL (80-97); Mean Platelet Volume 8.5 fL (7.4-10.4); Platelet Count 219 10^3/uL (150-450); Red Blood Count 2.35 10^6 /uL (3.70-4.87); Red Cell Distribution Width 17 % (10-15); White Blood Count 4.2 10^3/uL (3.5-10.8)
[2020-05-23] MEDS: Cholecalciferol (VIT D3) 1,000 unit TAB PO SCH (08:31)
[2020-05-23] MEDS: Aspirin EC 81 mg TAB.EC (enteric coated) PO SCH (08:39)
[2020-05-23] MEDS: ABEMACICLIB 150 MG PO SCH ×2 (08:39→20:44)
[2020-05-23 09:39] LABS: TSH Ultra Thyroid Stim Horm 0.01 mcIU/mL (0.34-5.60)
[2020-05-23 10:46] LABS: ABS Basophils 0.1 10^3/ul (0-0.2); ABS Eosinophils 0.1 10^3/ul (0-0.6); ABS Lymphocytes 0.7 10^3/ul (1.0-4.8); ABS Monocytes 0.6 10^3/ul (0-0.8); ABS Neutrophils 2.7 10^3/ul (1.5-7.7); Eosinophil % 1.8 %; Lymphocyte % 17.1 %; Nucleated Red Blood Cells % 0.1
[2020-05-23] MEDS ORDERED: HYDROmorphone 1 MG/1 ML SYRINGE IV SLOW PU ONE (11:22)
[2020-05-23] MEDS: Enoxaparin 30 MG/0.3 ML SYR SUBCUT SCH (15:32)
[2020-05-23] MEDS: CMCS:Rosuvastatin 10 mg TAB (NF) PO SCH (21:08)
[2020-05-24] MEDS: NS 0.9% 1000 ml BAG 1,000 ML IV SCH ×3 (01:59→21:18)
[2020-05-24 08:47] LABS: BUN/Creatinine Ratio 9.9 (8-20); Calcium 8.3 mg/dL (8.6-10.3); EGFR African American 38.7 (>60); Potassium 3.5 mmol/L (3.5-5.0)
[2020-05-24] MEDS: Aspirin EC 81 mg TAB.EC (enteric coated) PO SCH (09:34)
[2020-05-24] MEDS: Cholecalciferol (VIT D3) 1,000 unit TAB PO SCH (09:34)
[2020-05-24] MEDS: ABEMACICLIB 150 MG PO SCH ×2 (09:37→21:19)
[2020-05-24] MEDS: Enoxaparin 30 MG/0.3 ML SYR SUBCUT SCH (15:04)
[2020-05-24] MEDS: CMCS:Rosuvastatin 10 mg TAB (NF) PO SCH (21:16)
[2020-05-25] MEDS: NS 0.9% 1000 ml BAG 1,000 ML IV SCH ×2 (05:42→18:11)
[2020-05-25] MEDS: Aspirin EC 81 mg TAB.EC (enteric coated) PO SCH (09:54)
[2020-05-25] MEDS: Cholecalciferol (VIT D3) 1,000 unit TAB PO SCH (09:55)
[2020-05-25] MEDS: ABEMACICLIB 150 MG PO SCH (09:56)
[2020-05-25] MEDS: Enoxaparin 30 MG/0.3 ML SYR SUBCUT SCH (20:30)
[2020-05-25] MEDS: CMCS:Rosuvastatin 10 mg TAB (NF) PO SCH (20:32)
[2020-05-26] MEDS: ABEMACICLIB 150 MG PO SCH ×3 (01:01→21:25)
[2020-05-26] MEDS: NS 0.9% 1000 ml BAG 1,000 ML IV SCH ×2 (06:44→17:42)
[2020-05-26 09:13] LABS: Free T4 1.8 ng/dL (0.61-1.12)
[2020-05-26] MEDS: Aspirin EC 81 mg TAB.EC (enteric coated) PO SCH (09:22)
[2020-05-26] MEDS: Cholecalciferol (VIT D3) 1,000 unit TAB PO SCH (09:22)
[2020-05-26 12:02] LABS: % Iron Saturation 24 % (15-55); Iron 46 ug/dL (50-212); Total Iron Binding Capacity 193 mcg/dL (250-450); Transferrin 138 mg/dL (203-362); Unsaturated Iron Binding < 178 ug/dL
[2020-05-26] MEDS: CMCS:Rosuvastatin 10 mg TAB (NF) PO SCH (21:28)
[2020-05-26] MEDS: Enoxaparin 30 MG/0.3 ML SYR SUBCUT SCH (21:33)
[2020-05-27] MEDS: NS 0.9% 1000 ml BAG 1,000 ML IV SCH ×2 (05:22→16:19)
[2020-05-27] MEDS: Aspirin EC 81 mg TAB.EC (enteric coated) PO SCH (08:49)
[2020-05-27] MEDS: Cholecalciferol (VIT D3) 1,000 unit TAB PO SCH (08:49)
[2020-05-27] MEDS: ABEMACICLIB 150 MG PO SCH (08:50)
[2020-05-27] MEDS: CMCS:Rosuvastatin 10 mg TAB (NF) PO SCH (20:38)
[2020-05-27] MEDS: Enoxaparin 30 MG/0.3 ML SYR SUBCUT SCH (20:38)
[2020-05-28] MEDS: NS 0.9% 1000 ml BAG 1,000 ML IV SCH ×2 (02:27→12:08)
[2020-05-28 07:06] LABS: ABS Basophils 0.1 10^3/ul (0-0.2); ABS Eosinophils 0.1 10^3/ul (0-0.6); ABS Lymphocytes 0.6 10^3/ul (1.0-4.8); ABS Monocytes 0.6 10^3/ul (0-0.8); ABS Neutrophils 2.5 10^3/ul (1.5-7.7); Eosinophil % 1.4 %; Hematocrit 23 % (35-47); Hemoglobin 7.6 g/dL (12.0-16.0); Lymphocyte % 15.2 %; Mean Corpuscular HGB Conc 34 g/dL (31-36); Mean Corpuscular Hemoglobin 36 pg (27-31); Mean Corpuscular Volume 105 fL (80-97); Mean Platelet Volume 8.2 fL (7.4-10.4); Platelet Count 204 10^3/uL (150-450); Red Blood Count 2.13 10^6 /uL (3.70-4.87); Red Cell Distribution Width 17 % (10-15); White Blood Count 3.7 10^3/uL (3.5-10.8)
[2020-05-28 07:29] LABS: Albumin 2.6 g/dL (3.2-5.2); Albumin/Globulin Ratio 1.1 (1-3); BUN/Creatinine Ratio 9.2 (8-20); Calcium 8.1 mg/dL (8.6-10.3); EGFR African American 54.9 (>60); EGFR Non-African American 45.4 (>60); Globulin 2.4 g/dL (2-4); Total Bilirubin 0.4 mg/dL (0.2-1.0)
[2020-05-28 07:37] LABS: Potassium 2.4 mmol/L (3.5-5.0)
[2020-05-28] MEDS: KCL 20 MEQ/100 ML IVPREMIX 20 MEQ/100 ML BAG IV SCH ×3 (08:40→18:04)
[2020-05-28] MEDS: Cholecalciferol (VIT D3) 1,000 unit TAB PO SCH (08:45)
[2020-05-28] MEDS: Aspirin EC 81 mg TAB.EC (enteric coated) PO SCH (08:45)
[2020-05-28] MEDS ORDERED: Potassium Chlor 20 meq TAB.ER PO SCH (09:00)
[2020-05-28 11:42] LABS: Magnesium 1.6 mg/dL (1.9-2.7)
[2020-05-28] MEDS ORDERED: Magnesium Sulfate 2 gm BAG 2 GM/50 ML BAG IVPB ONE (12:19)
[2020-05-28 17:32] LABS: BUN/Creatinine Ratio 8.6 (8-20); Calcium 8.1 mg/dL (8.6-10.3); EGFR African American 56.6 (>60); EGFR Non-African American 46.7 (>60)
[2020-05-28 17:35] LABS: Potassium 2.6 mmol/L (3.5-5.0)
[2020-05-28] MEDS ORDERED: Potassium Chlor 20 meq TAB.ER PO ONE (17:40)
[2020-05-28] MEDS ORDERED: Magnesium Sulf 4 GM/100 ML IV 4,000 MG/100 ML BAG IVPB ONE (17:40)
[2020-05-28] MEDS: Enoxaparin 30 MG/0.3 ML SYR SUBCUT SCH (19:45)
[2020-05-28] MEDS: CMCS:Rosuvastatin 10 mg TAB (NF) PO SCH (19:46)
[2020-05-28] MEDS: Potassium Chlor 20 meq TAB.ER PO SCH (19:46)
[2020-05-29] MEDS: NS 0.9% 1000 ml BAG 1,000 ML IV SCH (00:12)
[2020-05-29] MEDS: KCL 20 MEQ/100 ML IVPREMIX 20 MEQ/100 ML BAG IV SCH (00:12)
[2020-05-29 05:19] LABS: Calcium 7.8 mg/dL (8.6-10.3); Magnesium 2.8 mg/dL (1.9-2.7)
[2020-05-29 05:20] LABS: ABS Eosinophils 0.1 10^3/ul (0-0.6); ABS Lymphocytes 0.7 10^3/ul (1.0-4.8); ABS Monocytes 0.6 10^3/ul (0-0.8); ABS Neutrophils 2.1 10^3/ul (1.5-7.7); Eosinophil % 1.6 %; Hematocrit 25 % (35-47); Hemoglobin 8.3 g/dL (12.0-16.0); Lymphocyte % 19.2 %; Mean Corpuscular HGB Conc 33 g/dL (31-36); Mean Corpuscular Hemoglobin 36 pg (27-31); Mean Corpuscular Volume 109 fL (80-97); Mean Platelet Volume 8.7 fL (7.4-10.4); Nucleated Red Blood Cells % 0.1; Platelet Count 212 10^3/uL (150-450); Red Blood Count 2.32 10^6 /uL (3.70-4.87); Red Cell Distribution Width 18 % (10-15); White Blood Count 3.5 10^3/uL (3.5-10.8)
[2020-05-29 05:24] LABS: BUN/Creatinine Ratio 8.3 (8-20); EGFR African American 53.9 (>60); EGFR Non-African American 44.5 (>60)
[2020-05-29 05:29] LABS: Potassium 3.3 mmol/L (3.5-5.0)
[2020-05-29] MEDS ORDERED: KCL 20 MEQ/100 ML IVPREMIX 20 MEQ/100 ML BAG IV ONE (06:00)
[2020-05-29] MEDS: Sodium Bicarbonate 8.4% IV 100 MEQ in D5W 1000 ML BAG IV SCH ×2 (06:32→18:17)
[2020-05-29] MEDS: Cholecalciferol (VIT D3) 1,000 unit TAB PO SCH (09:46)
[2020-05-29] MEDS: Potassium Chlor 20 meq TAB.ER PO SCH ×2 (09:47→21:28)
[2020-05-29] MEDS: Aspirin EC 81 mg TAB.EC (enteric coated) PO SCH (09:47)
[2020-05-29 13:02] LABS: Albumin 2.5 g/dL (3.2-5.2); BUN/Creatinine Ratio 8.3 (8-20); Calcium 7.7 mg/dL (8.6-10.3); EGFR African American 60.8 (>60); EGFR Non-African American 50.2 (>60); Globulin 2.4 g/dL (2-4); Potassium 3.3 mmol/L (3.5-5.0); Total Bilirubin 0.4 mg/dL (0.2-1.0); Total Protein 4.9 g/dL (6.4-8.9)
[2020-05-29] MEDS ORDERED: KCL 10 MEQ/50 ML IVPREMIX 10 MEQ/50 ML BAG IV ONE (15:13)
[2020-05-29] MEDS: Enoxaparin 30 MG/0.3 ML SYR SUBCUT SCH (21:29)
[2020-05-29] MEDS: CMCS:Rosuvastatin 10 mg TAB (NF) PO SCH (21:30)
[2020-05-30] MEDS: Sodium Bicarbonate 8.4% IV 100 MEQ in D5W 1000 ML BAG IV SCH ×2 (04:32→08:59)
[2020-05-30 07:13] LABS: ABS Basophils 0.1 10^3/ul (0-0.2); ABS Eosinophils 0.1 10^3/ul (0-0.6); ABS Lymphocytes 0.7 10^3/ul (1.0-4.8); ABS Monocytes 0.7 10^3/ul (0-0.8); ABS Neutrophils 2.4 10^3/ul (1.5-7.7); Eosinophil % 1.8 %; Hematocrit 24 % (35-47); Hemoglobin 8.1 g/dL (12.0-16.0); Mean Corpuscular HGB Conc 34 g/dL (31-36); Mean Corpuscular Hemoglobin 36 pg (27-31); Mean Corpuscular Volume 105 fL (80-97); Mean Platelet Volume 8.4 fL (7.4-10.4); Nucleated Red Blood Cells % 0.1; Platelet Count 240 10^3/uL (150-450); Red Blood Count 2.27 10^6 /uL (3.70-4.87); Red Cell Distribution Width 17 % (10-15); White Blood Count 3.9 10^3/uL (3.5-10.8)
[2020-05-30 07:32] LABS: Albumin 2.6 g/dL (3.2-5.2); BUN/Creatinine Ratio 5.8 (8-20); Calcium 7.7 mg/dL (8.6-10.3); EGFR African American 64.2 (>60); Globulin 2.5 g/dL (2-4); Total Bilirubin 0.4 mg/dL (0.2-1.0); Total Protein 5.1 g/dL (6.4-8.9)
[2020-05-30 07:56] LABS: Potassium 2.7 mmol/L (3.5-5.0)
[2020-05-30] MEDS: Cholecalciferol (VIT D3) 1,000 unit TAB PO SCH (08:45)
[2020-05-30] MEDS: Aspirin EC 81 mg TAB.EC (enteric coated) PO SCH (08:46)
[2020-05-30] MEDS: Potassium Chlor 20 meq TAB.ER PO SCH ×2 (08:46→21:43)
[2020-05-30] MEDS: KCL 20 MEQ/100 ML IVPREMIX 20 MEQ/100 ML BAG IV SCH ×2 (11:47→16:31)
[2020-05-30] MEDS: Enoxaparin 30 MG/0.3 ML SYR SUBCUT SCH (21:42)
[2020-05-30] MEDS: CMCS:Rosuvastatin 10 mg TAB (NF) PO SCH (21:42)
[2020-05-31] MEDS: NS 0.9% w/ 40 Meq KCL 1000 ML 1,000 ML IV SCH ×2 (02:18→16:28)
[2020-05-31] MEDS: Potassium Chlor 20 meq TAB.ER PO SCH ×2 (09:53→21:46)
[2020-05-31] MEDS: Cholecalciferol (VIT D3) 1,000 unit TAB PO SCH (09:54)
[2020-05-31] MEDS: Aspirin EC 81 mg TAB.EC (enteric coated) PO SCH (09:54)
[2020-05-31 12:51] LABS: ABS Basophils 0.1 10^3/ul (0-0.2); ABS Eosinophils 0.1 10^3/ul (0-0.6); ABS Lymphocytes 0.7 10^3/ul (1.0-4.8); ABS Monocytes 0.8 10^3/ul (0-0.8); ABS Neutrophils 2.1 10^3/ul (1.5-7.7); Eosinophil % 2.1 %; Hematocrit 22 % (35-47); Hemoglobin 7.7 g/dL (12.0-16.0); Lymphocyte % 18.9 %; Mean Corpuscular HGB Conc 35 g/dL (31-36); Mean Corpuscular Hemoglobin 36 pg (27-31); Mean Corpuscular Volume 105 fL (80-97); Mean Platelet Volume 7.8 fL (7.4-10.4); Nucleated Red Blood Cells % 0.1; Platelet Count 242 10^3/uL (150-450); Red Blood Count 2.11 10^6 /uL (3.70-4.87); Red Cell Distribution Width 17 % (10-15); White Blood Count 3.8 10^3/uL (3.5-10.8)
[2020-05-31 13:01] LABS: BUN/Creatinine Ratio 4.2 (8-20); Calcium 7.7 mg/dL (8.6-10.3); EGFR African American 71.2 (>60); EGFR Non-African American 58.9 (>60); Potassium 3.9 mmol/L (3.5-5.0)
[2020-05-31] MEDS: CMCS:Rosuvastatin 10 mg TAB (NF) PO SCH (21:45)
[2020-05-31] MEDS: Enoxaparin 30 MG/0.3 ML SYR SUBCUT SCH (21:47)
[2020-06-01] MEDS: NS 0.9% w/ 40 Meq KCL 1000 ML 1,000 ML IV SCH ×2 (05:41→18:04)
[2020-06-01] MEDS: Potassium Chlor 20 meq TAB.ER PO SCH ×2 (10:20→20:58)
[2020-06-01] MEDS: Cholecalciferol (VIT D3) 1,000 unit TAB PO SCH (10:20)
[2020-06-01] MEDS: Aspirin EC 81 mg TAB.EC (enteric coated) PO SCH (10:22)
[2020-06-01] MEDS: Enoxaparin 30 MG/0.3 ML SYR SUBCUT SCH (20:57)
[2020-06-01] MEDS: CMCS:Rosuvastatin 10 mg TAB (NF) PO SCH (20:59)
[2020-06-02] MEDS: NS 0.9% w/ 40 Meq KCL 1000 ML 1,000 ML IV SCH (05:14)
[2020-06-02] MEDS: Potassium Chlor 20 meq TAB.ER PO SCH ×2 (09:08→20:55)
[2020-06-02] MEDS: Cholecalciferol (VIT D3) 1,000 unit TAB PO SCH (09:08)
[2020-06-02] MEDS: Aspirin EC 81 mg TAB.EC (enteric coated) PO SCH (09:08)
[2020-06-02 12:02] LABS: Albumin 2.7 g/dL (3.2-5.2); Albumin/Globulin Ratio 1.2 (1-3); BUN/Creatinine Ratio 4.2 (8-20); Calcium 8.1 mg/dL (8.6-10.3); EGFR African American 71.2 (>60); EGFR Non-African American 58.9 (>60); Globulin 2.3 g/dL (2-4); Hematocrit 24 % (35-47); Hemoglobin 8.2 g/dL (12.0-16.0); Mean Corpuscular HGB Conc 34 g/dL (31-36); Mean Corpuscular Hemoglobin 36 pg (27-31); Mean Corpuscular Volume 107 fL (80-97); Potassium 4.8 mmol/L (3.5-5.0); Red Blood Count 2.27 10^6 /uL (3.70-4.87); Red Cell Distribution Width 18 % (10-15); Total Bilirubin 0.4 mg/dL (0.2-1.0); White Blood Count 4.8 10^3/uL (3.5-10.8)
[2020-06-02 14:06] LABS: ABS Basophils 0.1 10^3/ul (0-0.2); ABS Eosinophils 0.1 10^3/ul (0-0.6); ABS Lymphocytes 0.8 10^3/ul (1.0-4.8); ABS Monocytes 0.9 10^3/ul (0-0.8); ABS Neutrophils 2.9 10^3/ul (1.5-7.7); Eosinophil % 2.8 %; Lymphocyte % 16.2 %; Nucleated Red Blood Cells % 0.2; Platelet Count 280 10^3/uL (150-450)
[2020-06-02] MEDS: Enoxaparin 40 MG/0.4 ML SYR SUBCUT SCH (20:55)
[2020-06-02] MEDS: CMCS:Rosuvastatin 10 mg TAB (NF) PO SCH (20:55)
[2020-06-03 05:28] LABS: Calcium 7.8 mg/dL (8.6-10.3); Potassium 4.3 mmol/L (3.5-5.0)
[2020-06-03 05:34] LABS: BUN/Creatinine Ratio 4.8 (8-20); EGFR African American 63.4 (>60); EGFR Non-African American 52.4 (>60)
[2020-06-03] MEDS: Cholecalciferol (VIT D3) 1,000 unit TAB PO SCH (09:57)
[2020-06-03] MEDS: Potassium Chlor 20 meq TAB.ER PO SCH ×2 (09:58→20:58)
[2020-06-03] MEDS: Aspirin EC 81 mg TAB.EC (enteric coated) PO SCH (09:59)
[2020-06-03] MEDS: Nystatin TOP POWDER 15 GM BTL TOPICAL SCH (18:44)
[2020-06-03] MEDS: Enoxaparin 40 MG/0.4 ML SYR SUBCUT SCH (20:58)
[2020-06-03] MEDS: CMCS:Rosuvastatin 10 mg TAB (NF) PO SCH (21:08)
[2020-06-04 07:12] LABS: ABS Basophils 0.1 10^3/ul (0-0.2); ABS Eosinophils 0.2 10^3/ul (0-0.6); ABS Lymphocytes 0.9 10^3/ul (1.0-4.8); ABS Monocytes 0.9 10^3/ul (0-0.8); ABS Neutrophils 4.5 10^3/ul (1.5-7.7); Eosinophil % 2.7 %; Hematocrit 25 % (35-47); Hemoglobin 8.5 g/dL (12.0-16.0); Lymphocyte % 13.3 %; Mean Corpuscular HGB Conc 34 g/dL (31-36); Mean Corpuscular Hemoglobin 37 pg (27-31); Mean Corpuscular Volume 107 fL (80-97); Nucleated Red Blood Cells % 0.1; Platelet Count 319 10^3/uL (150-450); Red Blood Count 2.32 10^6 /uL (3.70-4.87); Red Cell Distribution Width 18 % (10-15); White Blood Count 6.5 10^3/uL (3.5-10.8)
[2020-06-04 07:29] LABS: Albumin 2.8 g/dL (3.2-5.2); Calcium 8.3 mg/dL (8.6-10.3); Potassium 4.3 mmol/L (3.5-5.0); Total Bilirubin 0.3 mg/dL (0.2-1.0)
[2020-06-04 07:35] LABS: Albumin/Globulin Ratio 1.1 (1-3); BUN/Creatinine Ratio 4.9 (8-20); EGFR African American 65.6 (>60); EGFR Non-African American 54.2 (>60); Globulin 2.6 g/dL (2-4); Total Protein 5.4 g/dL (6.4-8.9)
[2020-06-04] MEDS: Cholecalciferol (VIT D3) 1,000 unit TAB PO SCH (09:55)
[2020-06-04] MEDS: Aspirin EC 81 mg TAB.EC (enteric coated) PO SCH (09:56)
[2020-06-04] MEDS: Potassium Chlor 20 meq TAB.ER PO SCH ×2 (09:57→20:56)
[2020-06-04] MEDS: Nystatin TOP POWDER 15 GM BTL TOPICAL SCH ×2 (09:57→21:02)
[2020-06-04] MEDS: CMCS:Rosuvastatin 10 mg TAB (NF) PO SCH (20:56)
[2020-06-04] MEDS: Enoxaparin 40 MG/0.4 ML SYR SUBCUT SCH (20:57)
[2020-06-05] MEDS: Potassium Chlor 20 meq TAB.ER PO SCH ×2 (09:32→19:46)
[2020-06-05] MEDS: Cholecalciferol (VIT D3) 1,000 unit TAB PO SCH (09:32)
[2020-06-05] MEDS: Aspirin EC 81 mg TAB.EC (enteric coated) PO SCH (09:33)
[2020-06-05] MEDS: Nystatin TOP POWDER 15 GM BTL TOPICAL SCH ×2 (10:31→19:48)
[2020-06-05] MEDS ORDERED: Gadoteridol (CONTRAST) 279.3 MG/ML 10 ML IV ONE (15:04)
[2020-06-05] MEDS: CMCS:Rosuvastatin 10 mg TAB (NF) PO SCH (19:46)
[2020-06-05] MEDS: Enoxaparin 40 MG/0.4 ML SYR SUBCUT SCH (19:47)
[2020-06-06 06:51] LABS: BUN/Creatinine Ratio 5.7 (8-20); EGFR African American 62.8 (>60); EGFR Non-African American 51.9 (>60)
[2020-06-06 07:13] LABS: Hematocrit 24 % (35-47); Hemoglobin 8.2 g/dL (12.0-16.0); Mean Corpuscular HGB Conc 34 g/dL (31-36); Mean Corpuscular Hemoglobin 36 pg (27-31); Mean Corpuscular Volume 106 fL (80-97); Mean Platelet Volume 7.7 fL (7.4-10.4); Platelet Count 327 10^3/uL (150-450); Red Blood Count 2.27 10^6 /uL (3.70-4.87); Red Cell Distribution Width 17 % (10-15); White Blood Count 6.4 10^3/uL (3.5-10.8)
[2020-06-06] MEDS: Cholecalciferol (VIT D3) 1,000 unit TAB PO SCH (07:48)
[2020-06-06] MEDS: Aspirin EC 81 mg TAB.EC (enteric coated) PO SCH (07:48)
[2020-06-06] MEDS: Potassium Chlor 20 meq TAB.ER PO SCH (07:49)
[2020-06-06] MEDS: Nystatin TOP POWDER 15 GM BTL TOPICAL SCH (07:49)
[2020-06-06 08:39] LABS: ABS Basophils 0.2 10^3/ul (0-0.2); ABS Eosinophils 0.2 10^3/ul (0-0.6); ABS Lymphocytes 0.9 10^3/ul (1.0-4.8); ABS Neutrophils 4.1 10^3/ul (1.5-7.7); Eosinophil % 3.7 %; Lymphocyte % 14.3 %; Nucleated Red Blood Cells % 0.1
[2020-06-06 09:11] VITALS: BP 111/68
== END 2020-06-06 11:40 | DRG 542 ==
LOC: ED 11:15 → MED 16:05 → MEDTELE 05-23 00:25 → MED 05-23 16:21 → MEDTELE 06-03 12:22
PROVIDERS: ADMIT Hospitalist; ATTEND Internal Medicine Hematology & Oncology

== ENCOUNTER 2020-07-05 11:05 | Inpatient (IN) ==
[2020-07-05 14:07] LABS: Urine Appearance Cloudy; Urine Bilirubin Negative (Negative); Urine Blood Negative (Negative); Urine Color Yellow; Urine Glucose Negative (Negative); Urine Ketones Negative (Negative); Urine Nitrite Negative (Negative); Urine Protein Negative (Negative); Urine Specific Gravity 1.009 (1.010-1.030); Urine Urobilinogen Negative (Negative)
[2020-07-05 14:13] LABS: Urine Bacteria Absent (Absent); Urine Red Blood Cell Trace(0-2/hpf) (Absent); Urine Squamous Epithelial Cell Present (Absent); Urine White Blood Cell 1+(6-10/hpf) (Absent)
[2020-07-05 14:16] LABS: Hematocrit 30 % (35-47); Hemoglobin 10.1 g/dL (12.0-16.0); Mean Corpuscular HGB Conc 34 g/dL (31-36); Mean Corpuscular Hemoglobin 34 pg (27-31); Mean Corpuscular Volume 102 fL (80-97); Platelet Count 379 10^3/uL (150-450); Red Blood Count 2.96 10^6 /uL (3.70-4.87); Red Cell Distribution Width 15 % (10-15); White Blood Count 17.2 10^3/uL (3.5-10.8)
[2020-07-05 14:38] LABS: ABS Neutrophils 15.5 10^3/ul (1.5-7.7)
[2020-07-05 14:40] LABS: Albumin 3.6 g/dL (3.2-5.2); Albumin/Globulin Ratio 1.2 (1-3); BUN/Creatinine Ratio 22.2 (8-20); C Reactive Protein 18.01 mg/L (<8.01); Calcium 8.2 mg/dL (8.6-10.3); EGFR African American 85.6 (>60); EGFR Non-African American 70.7 (>60); Globulin 3.1 g/dL (2-4); Potassium 4.3 mmol/L (3.5-5.0); Total Bilirubin 0.7 mg/dL (0.2-1.0); Total Protein 6.7 g/dL (6.4-8.9)
[2020-07-05 18:18] LABS: Corrected Retic Count 1.1 % (0.5-1.5); Hematocrit for Retic CNT 27 % (35-47); Immature Retic Fraction 0.59; RBC Retic Count 2.65 10^6/uL (3.70-4.87)
[2020-07-05 19:16] LABS: TSH Ultra Thyroid Stim Horm 0.76 mcIU/mL (0.34-5.60)
[2020-07-05 19:18] LABS: Free T4 1.19 ng/dL (0.61-1.12)
[2020-07-05] MEDS: Enoxaparin 40 MG/0.4 ML SYR SUBCUT SCH (20:18)
[2020-07-06] MEDS: NS 0.9% 1000 ml BAG 1,000 ML IV SCH ×2 (00:35→11:44)
[2020-07-06] MEDS: Aspirin EC 81 mg TAB.EC (enteric coated) PO SCH (10:42)
[2020-07-06] MEDS: CMCS:Rosuvastatin 10 mg TAB (NF) PO SCH (10:42)
[2020-07-06 11:15] LABS: Hematocrit 28 % (35-47); Hemoglobin 9.4 g/dL (12.0-16.0); Mean Corpuscular HGB Conc 34 g/dL (31-36); Mean Corpuscular Hemoglobin 35 pg (27-31); Mean Corpuscular Volume 103 fL (80-97); Mean Platelet Volume 8.8 fL (7.4-10.4); Platelet Count 346 10^3/uL (150-450); Red Blood Count 2.71 10^6 /uL (3.70-4.87); Red Cell Distribution Width 14 % (10-15); White Blood Count 10.2 10^3/uL (3.5-10.8)
[2020-07-06 11:37] LABS: Albumin 3.2 g/dL (3.2-5.2); Albumin/Globulin Ratio 1.1 (1-3); Calcium 7.9 mg/dL (8.6-10.3); EGFR African American 93.5 (>60); EGFR Non-African American 77.3 (>60); Globulin 2.9 g/dL (2-4); Potassium 3.8 mmol/L (3.5-5.0); Total Bilirubin 0.6 mg/dL (0.2-1.0); Total Protein 6.1 g/dL (6.4-8.9)
[2020-07-06 11:48] LABS: ABS Basophils 0.1 10^3/ul (0-0.2); ABS Eosinophils 0.1 10^3/ul (0-0.6); ABS Monocytes 1.3 10^3/ul (0-0.8); ABS Neutrophils 7.7 10^3/ul (1.5-7.7); Eosinophil % 0.9 %; Lymphocyte % 9.9 %
[2020-07-06] MEDS: Enoxaparin 40 MG/0.4 ML SYR SUBCUT SCH (17:39)
[2020-07-07] MEDS ORDERED: Lidocaine PATCH 5% PATCH TRANSDERM ONE (09:28)
[2020-07-07] MEDS: Aspirin EC 81 mg TAB.EC (enteric coated) PO SCH (09:46)
[2020-07-07] MEDS: CMCS:Rosuvastatin 10 mg TAB (NF) PO SCH (09:48)
[2020-07-07] MEDS ORDERED: Lidocaine PATCH 5% PATCH ONE (09:48)
[2020-07-07] MEDS: Lidocaine PATCH 5% PATCH TRANSDERM SCH (09:50)
[2020-07-07] MEDS ORDERED: Polyethylene Glycol 3350 17 GM PACKET PO PRN (09:51)
[2020-07-07] MEDS: Senna TAB 8.6 mg TAB PO SCH (10:19)
[2020-07-07] MEDS: Magnesium Hydroxide LIQ 30 ML UDC PO PRN ×2 (11:46→21:08)
[2020-07-07] MEDS: Enoxaparin 40 MG/0.4 ML SYR SUBCUT SCH (18:38)
[2020-07-07] MEDS: Lidocaine Patch REMOVE PATCH PATCH OFF SCH (21:10)
[2020-07-08] MEDS ORDERED: Sodium Phosphate ADULT ENEMA 133 ML BTL PR ONE (09:53)
[2020-07-08] MEDS: Aspirin EC 81 mg TAB.EC (enteric coated) PO SCH (09:57)
[2020-07-08] MEDS: CMCS:Rosuvastatin 10 mg TAB (NF) PO SCH (09:57)
[2020-07-08] MEDS: Lidocaine PATCH 5% PATCH TRANSDERM SCH (09:59)
[2020-07-08] MEDS: Senna TAB 8.6 mg TAB PO SCH (09:59)
[2020-07-08] MEDS: Magnesium Hydroxide LIQ 30 ML UDC PO PRN (10:01)
[2020-07-08] MEDS ORDERED: Mineral Oil ENEMA 118 ML/BOTTLE BOTTLE PR ONE (10:52)
[2020-07-08] MEDS: Polyethylene Glycol 3350 17 GM PACKET PO SCH ×2 (14:18→22:09)
[2020-07-08] MEDS: Enoxaparin 40 MG/0.4 ML SYR SUBCUT SCH (18:12)
[2020-07-08] MEDS: Lidocaine Patch REMOVE PATCH PATCH OFF SCH (22:11)
[2020-07-09 06:57] LABS: ABS Basophils 0.1 10^3/ul (0-0.2); ABS Eosinophils 0.2 10^3/ul (0-0.6); ABS Lymphocytes 1.1 10^3/ul (1.0-4.8); ABS Monocytes 1.2 10^3/ul (0-0.8); ABS Neutrophils 5.3 10^3/ul (1.5-7.7); Eosinophil % 2.8 %; Hematocrit 29 % (35-47); Hemoglobin 9.7 g/dL (12.0-16.0); Mean Corpuscular HGB Conc 33 g/dL (31-36); Mean Corpuscular Hemoglobin 34 pg (27-31); Mean Corpuscular Volume 103 fL (80-97); Mean Platelet Volume 8.7 fL (7.4-10.4); Platelet Count 321 10^3/uL (150-450); Red Blood Count 2.83 10^6 /uL (3.70-4.87); Red Cell Distribution Width 15 % (10-15); White Blood Count 7.9 10^3/uL (3.5-10.8)
[2020-07-09 07:11] LABS: Albumin 3.2 g/dL (3.2-5.2); Albumin/Globulin Ratio 1.1 (1-3); BUN/Creatinine Ratio 17.9 (8-20); Calcium 8.4 mg/dL (8.6-10.3); EGFR African American 82.1 (>60); EGFR Non-African American 67.8 (>60); Globulin 2.8 g/dL (2-4); Potassium 3.5 mmol/L (3.5-5.0); Total Bilirubin 0.7 mg/dL (0.2-1.0)
[2020-07-09] MEDS: Polyethylene Glycol 3350 17 GM PACKET PO SCH ×3 (07:32→19:42)
[2020-07-09] MEDS: Senna TAB 8.6 mg TAB PO SCH (07:32)
[2020-07-09] MEDS: CMCS:Rosuvastatin 10 mg TAB (NF) PO SCH (07:34)
[2020-07-09] MEDS: Aspirin EC 81 mg TAB.EC (enteric coated) PO SCH (07:35)
[2020-07-09] MEDS: Lidocaine PATCH 5% PATCH TRANSDERM SCH (07:36)
[2020-07-09] MEDS: Enoxaparin 40 MG/0.4 ML SYR SUBCUT SCH (17:16)
[2020-07-09] MEDS: Magnesium Hydroxide LIQ 30 ML UDC PO PRN (17:18)
[2020-07-09] MEDS: Lidocaine Patch REMOVE PATCH PATCH OFF SCH (19:46)
[2020-07-10] MEDS: Senna TAB 8.6 mg TAB PO SCH (08:06)
[2020-07-10] MEDS: Polyethylene Glycol 3350 17 GM PACKET PO SCH (08:06)
[2020-07-10] MEDS: CMCS:Rosuvastatin 10 mg TAB (NF) PO SCH (08:06)
[2020-07-10] MEDS: Aspirin EC 81 mg TAB.EC (enteric coated) PO SCH (08:07)
[2020-07-10] MEDS: Lidocaine PATCH 5% PATCH TRANSDERM SCH (08:11)
[2020-07-10 11:21] VITALS: BP 93/62
== END 2020-07-10 14:40 | DRG 551 ==
LOC: ED 11:05 → MED 17:23
PROVIDERS: ADMIT Internal Medicine Hematology & Oncology; ATTEND Internal Medicine Hematology & Oncology